=== PATIENT | male | born 1935 | race Caucasian/White ===

== ENCOUNTER 2018-10-14 06:51 | Outpatient (CLI) | payer MEDICARE, MEDICAID | END 2018-10-14 23:59 | disposition home or self-care (01) | LOC: CVU 06:51 | PROVIDERS: ATTEND Registered Nurse | DX: Z01.810 Encounter for preprocedural cardiovascular examination (principal); I08.0 Rheumatic disorders of both mitral and aortic valves; I65.21 Occlusion and stenosis of right carotid artery; I70.218 Atherosclerosis of native arteries of extremities with intermittent claudication, other extremity; I10 Essential (primary) hypertension | CPT/HCPCS: 93306 ==

== ENCOUNTER 2018-10-14 08:23 | Inpatient (IN) | payer MEDICARE, MEDICAID ==
[~2018-10-14] VITALS: Ht 160 cm; Wt 78.7 kg
[~2018-10-14 08:23] MED LIST: ANXIETY MEDICATION PO; CITA20TA6 PO
[2018-10-14 09:45] LABS: BASOPHILS # (AUTO) 0.06 x10^3/uL (0-0.1); BASOPHILS % (AUTO) 1 % (0-1); EOSINOPHILS # (AUTO) 0.55 x10^3/uL (0-0.4); EOSINOPHILS % (AUTO) 6 % (1-7); LYMPHOCYTES # (AUTO) 1.57 x10^3/uL (1-3.4); LYMPHOCYTES % (AUTO) 16 % (22-44); MD NO; MEAN CORPUSCULAR HEMOGLOBIN 28.2 pg (27.5-34.5); MEAN CORPUSCULAR HGB CONC 32.4 g/dL (33.2-36.2); MEAN CORPUSCULAR VOLUME 87.1 fL (81-97); MEAN PLATELET VOLUME 8.1 fL (7.4-10.4); MONOCYTES # (AUTO) 0.95 x10^3/uL (0.2-0.8); MONOCYTES % (AUTO) 10 % (2-9); NEUTROPHILS # (AUTO) 6.71 x10^3/uL (1.8-6.8); NEUTROPHILS % (AUTO) 68 % (42-75); PLATELET COUNT 271 x10^3/uL (130-400); RED BLOOD COUNT 4.94 x10^6/uL (4.38-5.82); RED CELL DISTRIBUTION WIDTH 17.9 % (9.4-14.8)
--- NOTE | 2018-10-14 09:50 | NUR ---
SPOKE WITH NATHALIA FROM [facility], PT IS SUPPOSED TO BE TAKING LISINOPRIL 5 MG, PER OFFICE THEY DID NOT TAKE HIM OFF THIS MEDICATION.
[2018-10-14] MEDS ORDERED: NAPROXEN 500 MG TABLET ONE (09:51)
[2018-10-14 09:52] LABS: INTERNATIONAL NORMALIZED RATIO 1.02 (0.93-1.1); PROTHROMBIN TIME 10.7 Seconds (9.6-11.5)
[2018-10-14 09:54] LABS: ALANINE AMINOTRANSFERASE 20 U/L (12-78); ALBUMIN 3.4 g/dL (3.4-5.0); ANION GAP 7 mmol/L (5-15); CALCIUM 8.5 mg/dL (8.5-10.1); CHLORIDE 108 mmol/L (98-107); CREATININE 0.77 mg/dL (0.7-1.3)
[2018-10-14 09:56] LABS: ALKALINE PHOSPHATASE 93 U/L (45-117); BILIRUBIN,TOTAL 0.5 mg/dL (0.2-1.0); TOTAL PROTEIN 7.7 g/dL (6.4-8.2)
[2018-10-14] MEDS ORDERED: NAPROXEN 500 MG TABLET PO ONE (10:00)
--- NOTE | 2018-10-14 10:54 | NUR ---
PT GIVEN FOOD AND BLANKETS, PT UP FOR RECHECK
[2018-10-14] MEDS ORDERED: ENALAPRIL 5MG TABLET PO ONE (11:30)
--- NOTE | 2018-10-14 12:05 | NUR ---
PER RECHECK BP 30 MIN POST VASOTEC, WILL RECHECK BP POST MED
[2018-10-14] MEDS ORDERED: ANXIETY MEDICATION PO PRN (13:00)
[2018-10-14] MEDS ORDERED: ACETAMINOPHEN 650 MG/20.3 ML UDC PO PRN (13:00)
[2018-10-14] MEDS ORDERED: HYDROcodone/APAP 5/325 TABLET PO PRN (13:00)
[2018-10-14] MEDS ORDERED: ONDANSETRON 2MG/ML, 2ML IVPush PRN (13:00)
[2018-10-14] MEDS ORDERED: LABETALOL 5 MG/ML SYR. (IV ONLY) IV PRN (13:00)
--- NOTE | 2018-10-14 13:30 | NUR ---
PT TO MRI, WILL GO FROM MRI TO CT, AND FROM CT TO 523. ED TP AWARE. ED PRIMARY RN, RADHA, AWARE. NOTIFIED EVELYN HERRING, TELEMETRY OF POC. DEPART FROM ED AT THIS TIME.
[2018-10-14 14:13] VITALS: BP 210/92
[2018-10-14 14:42] VITALS: BP 191/97
[2018-10-14 16:26] LABS: TROPONIN I < 0.015 ng/mL (0.000-0.045)
[2018-10-14 16:36] LABS: TROPONIN I < 0.015 ng/mL (0.000-0.045)
[2018-10-14 17:21] VITALS: BP 164/72
[2018-10-14 19:37] VITALS: BP_SYST 182; BP_SYST 196; BP_DIAS 103; BP_DIAS 89
[2018-10-14] MEDS ORDERED: TRAZODONE 50MG TABLET PO ONE (20:30)
[2018-10-14] MEDS ORDERED: LABETALOL 5 MG/ML SYR. (IV ONLY) IV ONE (21:00)
[2018-10-14] MEDS: ATORVASTATIN 40 MG TABLET PO SCH (21:11)
[2018-10-14 21:26] LABS: TROPONIN I < 0.015 ng/mL (0.000-0.045)
[2018-10-14 22:45] VITALS: BP 163/79
[2018-10-15] VITALS (7 sets, daily range): BP systolic 125–184; BP diastolic 58–102
[2018-10-15 05:59] LABS: CHOL/HDL RATIO 2.5; LDL/HDL RATIO 1.2 (0.5-3.0)
[2018-10-15 06:01] LABS: HEMOGLOBIN A1C 5.5 % (4.2-6.3)
[2018-10-15] MEDS: ASPIRIN 81 MG TABLET CHEW PO/NG SCH (08:21)
[2018-10-15] MEDS: CITALOPRAM 20 MG TABLET PO SCH (08:21)
[2018-10-15] MEDS ORDERED: LISINOPRIL 5 MG TABLET PO SCH (09:00)
[2018-10-15] MEDS ORDERED: LISINOPRIL 5 MG TABLET PO ONE (12:30)
[2018-10-15] MEDS ORDERED: ENOXAPARIN 40 MG/0.4 ML SQ SCH (14:30)
[2018-10-15] MEDS ORDERED: TRAZODONE 50MG TABLET PO PRN (18:00)
[2018-10-15] MEDS: ATORVASTATIN 40 MG TABLET PO SCH (19:57)
[2018-10-15] MEDS ORDERED: ACETAMINOPHEN 325 MG TABLET PO PRN (20:30)
[2018-10-16 03:55] VITALS: BP_SYST 167; BP_SYST 187; BP_SYST 199; BP_DIAS 81; BP_DIAS 84
[2018-10-16 07:02] VITALS: BP 163/76
[2018-10-16] MEDS: CITALOPRAM 20 MG TABLET PO SCH (07:59)
[2018-10-16] MEDS: ASPIRIN 81 MG TABLET CHEW PO/NG SCH (08:00)
[2018-10-16 08:04] VITALS: BP 175/81
[2018-10-16 08:05] VITALS: BP 176/79
[2018-10-16 08:06] VITALS: BP 149/89
[2018-10-16] MEDS ORDERED: LISINOPRIL 10 MG TABLET PO SCH (09:00)
[2018-10-16] MEDS ORDERED: ENALAPRILAT 1.25 MG/ML, 1ML IV PRN (10:30)
[2018-10-16] MEDS ORDERED: OMNIPAQUE 350 MG/ML, 75ML BOTTLE ONE (12:00)
[2018-10-16 12:33] VITALS: BP 191/79
[2018-10-16] MEDS ORDERED: ASPI-515 PO/NG (13:45)
[2018-10-16] MEDS ORDERED: TRAZ50TA66 PO (13:45)
[2018-10-16] MEDS ORDERED: LISI-167 PO (13:45)
[2018-10-16] MEDS ORDERED: ATOR40TA78 PO (13:45)
[2018-12-03] MEDS ORDERED: CHLO25TA PO (10:31)
[2018-12-03] MEDS ORDERED: TAMS-11 PO (10:31)
[2018-12-03] MEDS ORDERED: LISI5TAB7 PO (10:31)
[2018-12-03] MEDS ORDERED: TRAZ-137 PO (10:31)
[2018-12-03] MEDS ORDERED: FERR324T5 PO (10:31)
[2018-12-03] MEDS ORDERED: DULO30CA2 PO (10:31)
[2018-12-03] MEDS ORDERED: ASPI-496 PO (10:31)
== END 2018-10-16 18:07 | disposition home health service (06) | DRG 313 ==
LOC: ED 10:27 → EDIP 12:28 → 5SO 13:07
PROVIDERS: ADMIT Internal Medicine; ATTEND Internal Medicine
DX: R07.89 Other chest pain (principal); J98.11 Atelectasis; I10 Essential (primary) hypertension; E78.5 Hyperlipidemia, unspecified; M54.5 Low back pain; R27.0 Ataxia, unspecified; R91.1 Solitary pulmonary nodule; G89.29 Other chronic pain; I65.21 Occlusion and stenosis of right carotid artery; N40.0 Benign prostatic hyperplasia without lower urinary tract symptoms; Z87.891 Personal history of nicotine dependence
CPT/HCPCS: 36415; 70450; 70551; 71045; 71260; 80053; 80061; 82607; 82962; 83036; 84484; 85025; 85610; 85730; 87806; 93005; 93306; 93308; 93880; G0378; J1650; Q9967; G0475

== ENCOUNTER 2019-04-27 14:24 | Emergency (ER) | payer MEDICAID, MEDICARE ==
[~2019-04-27] VITALS: Ht 162.6 cm; Wt 81.6 kg
[~2019-04-27 14:24] MED LIST changes: +ASPI-496 PO; +ASPI-515 PO/NG; +ATOR40TA78 PO; +CHLO25TA PO; +DULO30CA2 PO; +FERR324T5 PO; +LISI-167 PO; +LISI5TAB7 PO; +TAMS-11 PO; +TRAZ-175 PO; +TRAZ50TA66 PO
--- NOTE | 2019-04-27 14:49 | NUR ---
PT PRESENTED TO ED D/T COMPLAINTS OF BEING "DEHYDRATED." PT ALSO STATES HAS BEEN HAVING MORE DIFFICULTY AMBULATING AT HOME. PT AMBULATED FROM TRIAGE ROOM TO ROOM 1 WITH A STEADY GAIT. PT ALSO HAS COMPLAINTS OF URGENCY AND FREQUENCY. PT DENIES ANY HX OF BPH. PT STATES UNDERWENT A CAROTID ENDARTERECTOMY 3 MONTHS AGO AND HAS BEEN MORE NERVOUS SINCE PROCEDURE. ERMD AT BEDSIDE EVALUATING PT.
[2019-04-27] MEDS ORDERED: SODIUM CHLORIDE FLUSH 10ML SYR IVF ONE (15:00)
[2019-04-27] MEDS ORDERED: SODIUM CHLORIDE 0.9% 1,000ML IVBOLUS ONE (15:00)
--- NOTE | 2019-04-27 15:17 | NUR ---
RN OBTAINED ORTHOSTATIC'S PER ERMD REQUEST. SEE VS MONITORING. PIV WAS STARTED 20 L AC. LABS COLLECTED. PT ABLE TO PROVIDE RN WITH A URINE SAMPLE. LABS AND URINE WALKED TO LAB. CALL LIGHT AND PERSONAL BELONGINGS WITHIN REACH. FLUID BOLUS BEING ADMINISTERED.
--- NOTE | 2019-04-27 15:24 | NUR ---
RN CALLED PHARMACY TO GET COMPLETED MED REC. STUNT PERFORMER GOING TO FAX RN MED LIST.
[2019-04-27 15:29] LABS: BASOPHILS # (AUTO) 0.03 x10^3/uL (0-0.1); BASOPHILS % (AUTO) 0 % (0-1); EOSINOPHILS % (AUTO) 7 % (1-7); LYMPHOCYTES # (AUTO) 1.96 x10^3/uL (1-3.4); LYMPHOCYTES % (AUTO) 24 % (22-44); MD NO; MEAN CORPUSCULAR HEMOGLOBIN 29.5 pg (27.5-34.5); MEAN CORPUSCULAR HGB CONC 33.4 g/dL (33.2-36.2); MEAN CORPUSCULAR VOLUME 88.3 fL (81-97); MONOCYTES # (AUTO) 0.98 x10^3/uL (0.2-0.8); MONOCYTES % (AUTO) 12 % (2-9); NEUTROPHILS # (AUTO) 4.61 x10^3/uL (1.8-6.8); NEUTROPHILS % (AUTO) 56 % (42-75); PLATELET COUNT 325 x10^3/uL (130-400); RED CELL DISTRIBUTION WIDTH 14.1 % (9.4-14.8)
[2019-04-27 15:32] LABS: MICROSCOPIC NOT IND
[2019-04-27 15:34] LABS: ALBUMIN 3.5 g/dL (3.4-5.0); ANION GAP 6 mmol/L (5-15); CALCIUM 8.9 mg/dL (8.5-10.1); CHLORIDE 106 mmol/L (98-107); CREATININE 0.87 mg/dL (0.7-1.3)
[2019-04-27 15:38] LABS: TROPONIN I < 0.015 ng/mL (0.000-0.045)
[2019-04-27 15:40] LABS: CULTURE INDICATED? NO
[2019-04-27] MEDS ORDERED: MIRT7.5T8 PO (15:47)
[2019-04-27] MEDS ORDERED: CLOP75TA PO (15:47)
[2019-04-27] MEDS ORDERED: TRAZ-175 PO (15:47)
[2019-04-27] MEDS ORDERED: HYDR200T72 PO (15:47)
[2019-04-27] MEDS ORDERED: HYDR-3241 PO (15:47)
[2019-04-27 16:28] VITALS: BP 197/76
--- NOTE | 2019-04-27 16:40 | NUR ---
PATIENT BEING DISCHARGED HOME IN A STABLE CONDITION. PIV WAS REMOVED WITH TIP INTACT. RN TO GO OVER DC INSTRUCTIONS ONCE PAPERWORK IS PRINTED. PT NEEDED TO VOID RN PROVIDED PT WITH URINAL. PT GOING TO GET SELF DRESSED.
--- NOTE | 2019-04-27 16:58 | NUR ---
PT VERBALIZED UNDERSTANDING OF DC INSTRUCTIONS. NO FURTHER QUESTIONS OR CONCERNS WERE EXPRESSED AT THAT TIME. PT AMBULATED TO DC DESK WITH A STEADY GAIT.
== END 2019-04-27 17:00 | disposition home or self-care (01) ==
LOC: ED 16:45
DX: R42 Dizziness and giddiness (principal); R53.1 Weakness; I10 Essential (primary) hypertension; E78.00 Pure hypercholesterolemia, unspecified; E78.5 Hyperlipidemia, unspecified; Z90.49 Acquired absence of other specified parts of digestive tract; Z87.891 Personal history of nicotine dependence
CPT/HCPCS: 36415; 71045; 80048; 81003; 82040; 83880; 84484; 85025; 93005; 99284; J7030

== ENCOUNTER 2019-07-28 10:57 | Inpatient (IN) | payer MEDICARE, MEDICAID ==
[~2019-07-28] VITALS: Ht 162.6 cm; Wt 68.7 kg
[~2019-07-28 10:57] MED LIST changes: +AMLO10TA8 PO; +ASPI-515 PO; +CLOP75TA PO; +CYCL-259 PO; +FURO40TA6 PO; +GUAI200T37 PO; +HYDR-3241 PO; +HYDR200T72 PO; +LIDO700A20 TD; +LISI-170 PO; +MIRT7.5T8 PO; +POTA20TA6 PO; +RIVA10TA2 PO; +TRAM50TA2 PO
--- NOTE | 2019-07-28 11:17 | NUR ---
Nelida RN: Pt BIB [facility] after having a near syncopal episode w/ nausea & disphoresis while at the [facility] for COVID testing. Pt was found to be bradycardic (rate 45). Pt states that he was at the [facility] "just to get checked out". Pt states that he had tested positive for COVID 19 6 weeks ago and that he has been doing well & symptom free & that he was "cleared" after his inital admission 6 weeks ago for COVID 19. Pt's primary concern is the pain in his LLE d/t a wound on his big toe & heel which pt says is 6 weeks old.
[2019-07-28] MEDS ORDERED: ONDANSETRON 2MG/ML, 2ML ONE (11:25)
[2019-07-28] MEDS ORDERED: MORPHINE SULFATE 4 MG/ML, 1ML ONE (11:25)
--- NOTE | 2019-07-28 11:27 | NUR ---
SPOKE WITH MEETA REGARDING PTS COVID TEST FROM [facility]. ATTEMPTED TO CONTACT HEALTH DEPT AND LEFT MESSAGE. MEETA WILL TRY TO CONTACT.
[2019-07-28] MEDS: MORPHINE SULFATE 4 MG/ML, 1ML IVPush PRN ×3 (11:29→21:56)
--- NOTE | 2019-07-28 11:29 | NUR ---
dr toth spoke with dr paris
[2019-07-28] MEDS ORDERED: SODIUM CHLORIDE FLUSH 10ML SYR IVF ONE (11:30)
[2019-07-28] MEDS ORDERED: ONDANSETRON 2MG/ML, 2ML IVPush ONE (11:30)
[2019-07-28 11:32] LABS: BASOPHILS # (AUTO) 0.06 x10^3/uL (0-0.1); BASOPHILS % (AUTO) 0 % (0-1); EOSINOPHILS % (AUTO) 0 % (1-7); LYMPHOCYTES # (AUTO) 1.65 x10^3/uL (1-3.4); LYMPHOCYTES % (AUTO) 11 % (22-44); MD NO; MEAN CORPUSCULAR HEMOGLOBIN 28.4 pg (27.5-34.5); MEAN CORPUSCULAR HGB CONC 33.3 g/dL (33.2-36.2); MEAN CORPUSCULAR VOLUME 85.2 fL (81-97); MONOCYTES # (AUTO) 1.35 x10^3/uL (0.2-0.8); MONOCYTES % (AUTO) 9 % (2-9); NEUTROPHILS # (AUTO) 12.55 x10^3/uL (1.8-6.8); NEUTROPHILS % (AUTO) 80 % (42-75); PLATELET COUNT 270 x10^3/uL (130-400); RED BLOOD COUNT 4.82 x10^6/uL (4.38-5.82)
--- NOTE | 2019-07-28 11:35 | NUR ---
RAD IN ROOM FOR XR.
--- NOTE | 2019-07-28 11:38 | NUR ---
CLEANER AND PRESSER IN ROOM W/ .
[2019-07-28 11:44] LABS: ALANINE AMINOTRANSFERASE 24 U/L (12-78); ALBUMIN 3.1 g/dL (3.4-5.0); ANION GAP 11 mmol/L (5-15); CALCIUM 9.2 mg/dL (8.5-10.1); CHLORIDE 104 mmol/L (98-107); CREATININE 5.25 mg/dL (0.7-1.3)
[2019-07-28 11:48] LABS: ALKALINE PHOSPHATASE 102 U/L (45-117); BILIRUBIN,TOTAL 0.6 mg/dL (0.2-1.0); TROPONIN I < 0.015 ng/mL (0.000-0.045)
--- NOTE | 2019-07-28 12:03 | NUR ---
SPOKE W/ [facility]. THEY REPORT HE HAS NOT FILLED MEDS AT THEIR FACILITY IN ABOUT 3 MONTHS, THEY ARE WAITING ON PRIMARY CARE TO SEND A MED LIST. THEY REPORTED ONLY FILLED AUGMENTIN AND NORCO 3 DAYS AGO. CALLED PTS PRIMARY CARE , THEY REPORTS HE IS ON NO BETA BLOCKERS AND WILL FAX OVER HIS MED LIST NOW. WILL UPDATE .
[2019-07-28] MEDS ORDERED: AMOX1TAB64 PO (12:15)
[2019-07-28] MEDS ORDERED: ASPI-496 PO (12:15)
[2019-07-28] MEDS ORDERED: TAMS-11 PO (12:15)
[2019-07-28] MEDS ORDERED: HYDR-3240 PO (12:16)
--- NOTE | 2019-07-28 12:16 | NUR ---
MED REC UPDATED BASED OFF OF MED LIST PRIMARY CARE DOC FAXED OVER.
[2019-07-28] MEDS ORDERED: SODIUM CHLORIDE 0.9% 1,000ML IVBOLUS ONE (12:30)
--- NOTE | 2019-07-28 12:47 | NUR ---
PT REPORTED FEELING DIZZY, TIRED AND NAUSEAS. PT FOUND TO BE HYPOTENSIVE AT 76/19. NOTIFIED, 1L NS BOLUS STARTED, PT NOW NORMOTENSIVE AND HR IMPROVED. WHILE IN THE ROOM PT HAS A 6 SECOND LONG PAUSE, RHYTHM PRINTED AND GIVEN TO , SHE REPROTS SHE WILL CALL CARDIOLOGY. PT CONNECTED TO MONITORING, WILL CONTINUE TO MONITOR.
[2019-07-28] MEDS ORDERED: DOPAMINE/D5W PMX 250 ML IV PRN ×2 (13:00→13:30)
--- NOTE | 2019-07-28 13:01 | NUR ---
dr toth spoke with dr paris
[2019-07-28] MEDS ORDERED: FENTANYL PF 100 MCG/2ML ONE ×2 (13:14→14:13)
[2019-07-28] MEDS ORDERED: MIDAZOLAM 1 MG/ML, 2ML ONE ×2 (13:14→14:13)
[2019-07-28] MEDS: DOPAMINE/D5W PMX 250 ML IV PRN ×2 (13:16→23:41)
--- NOTE | 2019-07-28 13:18 | NUR ---
MD Luo at bedside to discuss code status w/ pt, pt states he wants to be a DNR. Primary NIMA Landon & myself at bedside initiating Addendum: 07/28/19 at 1319 by EDGAR MD Luo at bedside to discuss code status w/ pt, pt states he wants to be a DNR. Primary NIMA Landon & myself at bedside initiating dopamine.
[2019-07-28] MEDS ORDERED: SODIUM CHLORIDE FLUSH 10ML SYR IVF PRN (13:30)
[2019-07-28] MEDS ORDERED: MIDAZOLAM HCL 50 MG in SODIUM CHLORIDE 0.9% 40 ML IV PRN (13:36)
--- NOTE | 2019-07-28 13:41 | NUR ---
TO TALK TO TO REEVALUATE PLAN FOR PACEMAKER.
--- NOTE | 2019-07-28 13:54 | NUR ---
AGREED TO TAKE PT TO GAS LOAD DISPATCHER FOR TEMPORARY PACEMAKER. PTS CLOTHING REMOVED AND PLACED IN BAG. PT UPDATED ON POC. SINUS PAUSES HAVE IMPROVED AFTER INITIAION OF DOPAMINE DRIP.
--- NOTE | 2019-07-28 13:58 | NUR ---
PT STILL C/O NAUSEA AND DIZZINESS.
[2019-07-28] MEDS: NICOTINE 14MG/24 HR PATCH.TD24 TD SCH (14:00)
[2019-07-28] MEDS ORDERED: FENTANYL PF 1,000 MCG in SODIUM CHLORIDE 0.9% 80 ML IV PRN (14:00)
[2019-07-28] MEDS: LACTATED RINGERS 1,000 ML IV SCH ×2 (14:12→22:20)
[2019-07-28] MEDS ORDERED: LIDOCAINE 2%, 20ML ONE (14:13)
--- NOTE | 2019-07-28 14:40 | NUR ---
PT TRANSFERED TO THE LOG WASHER.
--- NOTE | 2019-07-28 14:41 | NUR ---
ATTEMPT TO CALL REPORT TO ICU. UNAVAILABLE AT THIS TIME.
[2019-07-28 14:55] LABS: FREE T4 (FREE THYROXINE) 1.25 ng/dL (0.76-1.46); TROPONIN I 0.019 ng/mL (0.000-0.045)
[2019-07-28 14:57] LABS: INTERNATIONAL NORMALIZED RATIO 0.97 (0.93-1.1); PROTHROMBIN TIME 10.3 Seconds (9.6-11.5)
--- NOTE | 2019-07-28 15:09 | NUR ---
REPORT TO NIMA CARMICHAEL
--- NOTE | 2019-07-28 15:15 | NUR ---
MARY ANNE [phone] . ALY FORREST [phone]. PTS CLOSE FRIENDS WOULD LIKE TO BE UPDATED W/ PTS PERMISSION.
[2019-07-28] MEDS: AMPICILLIN/SULBACTAM 1,500 MG in SODIUM CHLORIDE 0.9% 50 ML IV SCH ×2 (15:59→23:39)
[2019-07-28 16:00] VITALS: BP 153/78
[2019-07-28] MEDS ORDERED: ONDANSETRON 2MG/ML, 2ML IVPush PRN (16:00)
[2019-07-28] MEDS ORDERED: LORazepam 2 MG/ML, 1ML IV PRN ×2 (16:00)
[2019-07-28] MEDS ORDERED: LORazepam 1MG TABLET PO PRN (16:00)
[2019-07-28] MEDS ORDERED: hydrALAzine 20 MG/ML, 1ML IV PRN (17:00)
[2019-07-28] MEDS: HEPARIN 5,000 UNITS/ML, 1ML SQ SCH (17:34)
[2019-07-28] MEDS: LORazepam 0.5MG TABLET PO PRN (20:44)
[2019-07-28 21:03] LABS: TROPONIN I 0.081 ng/mL (0.000-0.045)
[2019-07-29] MEDS: LORazepam 2 MG/ML, 1ML IV PRN ×2 (01:14→17:22)
[2019-07-29] MEDS: HEPARIN 5,000 UNITS/ML, 1ML SQ SCH (01:55)
[2019-07-29 04:00] VITALS: BP 107/43
[2019-07-29 04:58] LABS: ALANINE AMINOTRANSFERASE 15 U/L (12-78); ALBUMIN 2.3 g/dL (3.4-5.0); ANION GAP 9 mmol/L (5-15); CALCIUM 7.9 mg/dL (8.5-10.1); CHLORIDE 107 mmol/L (98-107); CREATININE 3.67 mg/dL (0.7-1.3)
[2019-07-29 05:03] LABS: BASOPHILS # (AUTO) 0.02 x10^3/uL (0-0.1); BASOPHILS % (AUTO) 0 % (0-1); EOSINOPHILS % (AUTO) 0 % (1-7); LYMPHOCYTES # (AUTO) 2.34 x10^3/uL (1-3.4); LYMPHOCYTES % (AUTO) 20 % (22-44); MD NO; MEAN CORPUSCULAR HEMOGLOBIN 27.9 pg (27.5-34.5); MEAN CORPUSCULAR HGB CONC 32.6 g/dL (33.2-36.2); MEAN CORPUSCULAR VOLUME 85.7 fL (81-97); MEAN PLATELET VOLUME 10.3 fL (7.4-10.4); MONOCYTES # (AUTO) 1.26 x10^3/uL (0.2-0.8); MONOCYTES % (AUTO) 11 % (2-9); NEUTROPHILS # (AUTO) 8.39 x10^3/uL (1.8-6.8); NEUTROPHILS % (AUTO) 70 % (42-75); PLATELET COUNT 219 x10^3/uL (130-400); RED BLOOD COUNT 3.75 x10^6/uL (4.38-5.82); RED CELL DISTRIBUTION WIDTH 16.4 % (9.4-14.8)
[2019-07-29 05:05] LABS: ALKALINE PHOSPHATASE 81 U/L (45-117); BILIRUBIN,TOTAL 0.6 mg/dL (0.2-1.0); TOTAL PROTEIN 6.2 g/dL (6.4-8.2)
[2019-07-29 05:13] LABS: CHOL/HDL RATIO 4.1; LDL/HDL RATIO 2.6 (0.5-3.0)
[2019-07-29] MEDS: LACTATED RINGERS 1,000 ML IV SCH ×2 (06:00→17:32)
[2019-07-29 06:07] LABS: MICROSCOPIC NOT IND
[2019-07-29 06:13] LABS: CHLORIDE,URINE RANDOM 18 mmol/L; POTASSIUM,URINE RANDOM 59 mmol/L; SODIUM,URINE RANDOM 25 mmol/L
[2019-07-29] MEDS ORDERED: HEPARIN 5,000 UNITS/ML, 1ML IV ONE (10:30)
[2019-07-29] MEDS: THIAMINE 200 MG in SODIUM CHLORIDE 0.9% 50 ML IV SCH (10:54)
[2019-07-29] MEDS: AMPICILLIN/SULBACTAM 1,500 MG in SODIUM CHLORIDE 0.9% 50 ML IV SCH ×2 (10:55→18:41)
[2019-07-29] MEDS: DIAZEPAM 5 MG TABLET PO SCH ×3 (11:03→19:59)
[2019-07-29] MEDS: HEPARIN 25,000 UNITS/250ML PMX 250 ML IV PRN (11:50)
[2019-07-29] MEDS ORDERED: ZIPRASIDONE 20MG CAPSULE ONE (12:09)
[2019-07-29] MEDS ORDERED: ZIPRASIDONE 20 MG INJ IM ONE ×2 (12:30→19:00)
[2019-07-29] MEDS: NICOTINE 14MG/24 HR PATCH.TD24 TD SCH (15:24)
[2019-07-29] MEDS: DOPAMINE/D5W PMX 250 ML IV PRN (15:25)
[2019-07-29] MEDS: MORPHINE SULFATE 4 MG/ML, 1ML IVPush PRN ×2 (15:25→22:05)
[2019-07-29] MEDS ORDERED: ZIPRASIDONE 20MG CAPSULE PO SCH (21:00)
[2019-07-30 01:04] LABS: ALANINE AMINOTRANSFERASE 15 U/L (12-78); ALBUMIN 2.3 g/dL (3.4-5.0); ANION GAP 7 mmol/L (5-15); CALCIUM 8.3 mg/dL (8.5-10.1); CHLORIDE 112 mmol/L (98-107)
[2019-07-30 01:11] LABS: ALKALINE PHOSPHATASE 76 U/L (45-117); BILIRUBIN,TOTAL 0.3 mg/dL (0.2-1.0); CREATININE 1.58 mg/dL (0.7-1.3); TOTAL PROTEIN 6.4 g/dL (6.4-8.2)
[2019-07-30 01:22] LABS: MEAN CORPUSCULAR HEMOGLOBIN 28.3 pg (27.5-34.5); MEAN CORPUSCULAR VOLUME 85.6 fL (81-97); MEAN PLATELET VOLUME 10.1 fL (7.4-10.4); PLATELET COUNT 222 x10^3/uL (130-400); RED BLOOD COUNT 3.92 x10^6/uL (4.38-5.82); RED CELL DISTRIBUTION WIDTH 16.6 % (9.4-14.8)
[2019-07-30] MEDS: MORPHINE SULFATE 4 MG/ML, 1ML IVPush PRN ×2 (01:30→20:42)
[2019-07-30 01:31] LABS: BASOPHILS # (AUTO) 0.03 x10^3/uL (0-0.1); BASOPHILS % (AUTO) 0 % (0-1); EOSINOPHILS % (AUTO) 0 % (1-7); LYMPHOCYTES # (AUTO) 1.95 x10^3/uL (1-3.4); LYMPHOCYTES % (AUTO) 24 % (22-44); MD SCAN; MONOCYTES % (AUTO) 12 % (2-9); NEUTROPHILS # (AUTO) 5.14 x10^3/uL (1.8-6.8); NEUTROPHILS % (AUTO) 63 % (42-75)
[2019-07-30] MEDS: AMPICILLIN/SULBACTAM 1,500 MG in SODIUM CHLORIDE 0.9% 50 ML IV SCH (02:28)
[2019-07-30] MEDS: LACTATED RINGERS 1,000 ML IV SCH ×2 (02:28→16:40)
[2019-07-30] MEDS: LORazepam 2 MG/ML, 1ML IV PRN (05:47)
[2019-07-30] MEDS: DIAZEPAM 5 MG TABLET PO SCH ×4 (05:47→20:42)
[2019-07-30] MEDS ORDERED: ZIPRASIDONE 20 MG INJ IM PRN (08:00)
[2019-07-30] MEDS: THIAMINE 200 MG in SODIUM CHLORIDE 0.9% 50 ML IV SCH (10:17)
[2019-07-30] MEDS: AMLODIPINE 5 MG TABLET PO SCH (10:17)
[2019-07-30] MEDS: NICOTINE 14MG/24 HR PATCH.TD24 TD SCH (14:47)
[2019-07-30] MEDS ORDERED: AMPICILLIN/SULBACTAM 3,000 MG in SODIUM CHLORIDE 0.9% 50 ML IV SCH (16:00)
[2019-07-30] MEDS: AMPICILLIN/SULBACTAM 3,000 MG in SODIUM CHLORIDE 0.9% 100 ML IV SCH (16:35)
[2019-07-30] MEDS: HEPARIN 25,000 UNITS/250ML PMX 250 ML IV PRN (20:30)
[2019-07-30] MEDS: ATORVASTATIN 80 MG TABLET PO SCH (20:41)
[2019-07-31] MEDS: LORazepam 2 MG/ML, 1ML IV PRN ×2 (00:11→05:24)
[2019-07-31] MEDS: AMPICILLIN/SULBACTAM 3,000 MG in SODIUM CHLORIDE 0.9% 100 ML IV SCH ×3 (00:12→16:02)
[2019-07-31] MEDS: MORPHINE SULFATE 4 MG/ML, 1ML IVPush PRN ×2 (00:12→05:23)
[2019-07-31] MEDS: DIAZEPAM 5 MG TABLET PO SCH (05:28)
[2019-07-31 06:30] LABS: ALANINE AMINOTRANSFERASE 18 U/L (12-78); ALBUMIN 2.6 g/dL (3.4-5.0); ANION GAP 4 mmol/L (5-15); CHLORIDE 111 mmol/L (98-107); CREATININE 0.85 mg/dL (0.7-1.3)
[2019-07-31 06:32] LABS: ALKALINE PHOSPHATASE 83 U/L (45-117); BILIRUBIN,TOTAL 0.5 mg/dL (0.2-1.0); TOTAL PROTEIN 6.9 g/dL (6.4-8.2)
[2019-07-31] MEDS: AMLODIPINE 5 MG TABLET PO SCH (08:32)
[2019-07-31] MEDS: HEPARIN 5,000 UNITS/ML, 1ML IV PRN (08:32)
[2019-07-31] MEDS: THIAMINE 200 MG in SODIUM CHLORIDE 0.9% 50 ML IV SCH (09:14)
[2019-07-31] MEDS: LACTATED RINGERS 1,000 ML IV SCH (11:26)
[2019-07-31] MEDS: NICOTINE 14MG/24 HR PATCH.TD24 TD SCH (16:02)
[2019-07-31] MEDS: ATORVASTATIN 80 MG TABLET PO SCH (20:47)
[2019-07-31] MEDS: LORazepam 1MG TABLET PO PRN (20:48)
[2019-07-31] MEDS: HEPARIN 25,000 UNITS/250ML PMX 250 ML IV PRN (22:15)
[2019-08-01] MEDS: AMPICILLIN/SULBACTAM 3,000 MG in SODIUM CHLORIDE 0.9% 100 ML IV SCH ×4 (00:28→23:35)
[2019-08-01 07:36] LABS: ALANINE AMINOTRANSFERASE 14 U/L (12-78); ALBUMIN 2.2 g/dL (3.4-5.0); ANION GAP 7 mmol/L (5-15); CALCIUM 8.3 mg/dL (8.5-10.1); CHLORIDE 109 mmol/L (98-107); CREATININE 0.71 mg/dL (0.7-1.3)
[2019-08-01 07:38] LABS: ALKALINE PHOSPHATASE 73 U/L (45-117); BILIRUBIN,TOTAL 0.4 mg/dL (0.2-1.0)
[2019-08-01] MEDS: THIAMINE 200 MG in SODIUM CHLORIDE 0.9% 50 ML IV SCH (09:21)
[2019-08-01] MEDS ORDERED: LISINOPRIL 10 MG TABLET ONE (09:21)
[2019-08-01] MEDS: LACTATED RINGERS 1,000 ML IV SCH (09:22)
[2019-08-01] MEDS: AMLODIPINE 5 MG TABLET PO SCH (09:22)
[2019-08-01] MEDS: LISINOPRIL 10 MG TABLET PO SCH ×2 (09:22→20:29)
[2019-08-01] MEDS: ACETAMINOPHEN 325 MG TABLET PO PRN (14:38)
[2019-08-01] MEDS: NICOTINE 14MG/24 HR PATCH.TD24 TD SCH (16:30)
[2019-08-01] MEDS: MORPHINE SULFATE 4 MG/ML, 1ML IVPush PRN (18:53)
[2019-08-01] MEDS: ATORVASTATIN 80 MG TABLET PO SCH (20:29)
[2019-08-01] MEDS: LORazepam 1MG TABLET PO PRN (23:36)
[2019-08-02] MEDS: HEPARIN 25,000 UNITS/250ML PMX 250 ML IV PRN (02:44)
[2019-08-02] MEDS: MORPHINE SULFATE 4 MG/ML, 1ML IVPush PRN ×3 (02:51→10:56)
[2019-08-02] MEDS: LACTATED RINGERS 1,000 ML IV SCH (05:26)
[2019-08-02 05:28] LABS: ALANINE AMINOTRANSFERASE 16 U/L (12-78); ALBUMIN 2.1 g/dL (3.4-5.0); ANION GAP 8 mmol/L (5-15); CALCIUM 8.2 mg/dL (8.5-10.1); CHLORIDE 112 mmol/L (98-107); CREATININE 0.64 mg/dL (0.7-1.3)
[2019-08-02 05:29] LABS: ALKALINE PHOSPHATASE 67 U/L (45-117); BILIRUBIN,TOTAL 0.4 mg/dL (0.2-1.0); TOTAL PROTEIN 6.2 g/dL (6.4-8.2)
[2019-08-02] MEDS: HEPARIN 5,000 UNITS/ML, 1ML IV PRN (06:26)
[2019-08-02] MEDS: LISINOPRIL 10 MG TABLET PO SCH ×2 (08:59→20:13)
[2019-08-02] MEDS: AMLODIPINE 5 MG TABLET PO SCH (08:59)
[2019-08-02] MEDS: THIAMINE 200 MG in SODIUM CHLORIDE 0.9% 50 ML IV SCH (09:00)
[2019-08-02] MEDS: AMPICILLIN/SULBACTAM 3,000 MG in SODIUM CHLORIDE 0.9% 100 ML IV SCH ×2 (09:00→15:42)
[2019-08-02] MEDS: OXYcodone IR 5MG TABLET PO PRN ×3 (12:10→20:14)
[2019-08-02] MEDS: NICOTINE 14MG/24 HR PATCH.TD24 TD SCH (15:42)
[2019-08-02] MEDS: ATORVASTATIN 80 MG TABLET PO SCH (20:11)
[2019-08-02] MEDS: ACETAMINOPHEN 325 MG TABLET PO PRN (20:14)
[2019-08-02 20:19] VITALS: BP 148/67
[2019-08-02] MEDS ORDERED: TEMAZEPAM 15 MG CAPSULE PO ONE (21:00)
[2019-08-02] MEDS: morphine SULFATE 10 MG/ML, 1ML IVPush PRN (21:39)
[2019-08-03] MEDS: HEPARIN 25,000 UNITS/250ML PMX 250 ML IV PRN (01:51)
[2019-08-03] MEDS: AMPICILLIN/SULBACTAM 3,000 MG in SODIUM CHLORIDE 0.9% 100 ML IV SCH ×3 (02:00→16:52)
[2019-08-03 03:05] VITALS: BP 140/65
[2019-08-03] MEDS: HEPARIN 5,000 UNITS/ML, 1ML IV PRN (05:32)
[2019-08-03 08:39] VITALS: BP 120/63
[2019-08-03] MEDS: OXYcodone IR 5MG TABLET PO PRN ×4 (08:42→22:47)
[2019-08-03] MEDS: AMLODIPINE 5 MG TABLET PO SCH (08:42)
[2019-08-03] MEDS: LISINOPRIL 10 MG TABLET PO SCH ×2 (08:42→19:45)
[2019-08-03] MEDS: NICOTINE 14MG/24 HR PATCH.TD24 TD SCH (11:30)
[2019-08-03] MEDS: THIAMINE 200 MG in SODIUM CHLORIDE 0.9% 50 ML IV SCH (11:56)
[2019-08-03] MEDS: POLYETHYLENE GLYCOL 17 GM PACKET PO PRN (11:59)
[2019-08-03] MEDS: DOCUSATE 100 MG CAPSULE PO SCH ×2 (11:59→19:45)
[2019-08-03 12:09] VITALS: BP 108/58
[2019-08-03 14:41] VITALS: BP 114/31
[2019-08-03 18:16] VITALS: BP 103/50
[2019-08-03] MEDS: ATORVASTATIN 80 MG TABLET PO SCH (19:45)
[2019-08-04 00:39] VITALS: BP 149/73
[2019-08-04] MEDS: AMPICILLIN/SULBACTAM 3,000 MG in SODIUM CHLORIDE 0.9% 100 ML IV SCH ×3 (01:16→16:46)
[2019-08-04] MEDS: HEPARIN 25,000 UNITS/250ML PMX 250 ML IV PRN (01:19)
[2019-08-04] MEDS: morphine SULFATE 10 MG/ML, 1ML IVPush PRN (03:17)
[2019-08-04 04:37] LABS: ANION GAP 6 mmol/L (5-15); CALCIUM 8.3 mg/dL (8.5-10.1); CHLORIDE 110 mmol/L (98-107); CREATININE 0.82 mg/dL (0.7-1.3)
[2019-08-04 04:41] LABS: BASOPHILS % (AUTO) 0 % (0-1); EOSINOPHILS % (AUTO) 0 % (1-7); LYMPHOCYTES # (AUTO) 2.71 x10^3/uL (1-3.4); LYMPHOCYTES % (AUTO) 24 % (22-44); MD NO; MEAN CORPUSCULAR HEMOGLOBIN 28.3 pg (27.5-34.5); MEAN CORPUSCULAR HGB CONC 32.9 g/dL (33.2-36.2); MEAN CORPUSCULAR VOLUME 85.8 fL (81-97); MEAN PLATELET VOLUME 9.4 fL (7.4-10.4); MONOCYTES # (AUTO) 1.19 x10^3/uL (0.2-0.8); MONOCYTES % (AUTO) 11 % (2-9); NEUTROPHILS # (AUTO) 7.29 x10^3/uL (1.8-6.8); NEUTROPHILS % (AUTO) 65 % (42-75); PLATELET COUNT 215 x10^3/uL (130-400); RED BLOOD COUNT 3.68 x10^6/uL (4.38-5.82); RED CELL DISTRIBUTION WIDTH 18.6 % (9.4-14.8)
[2019-08-04 07:24] VITALS: BP 129/68
[2019-08-04] MEDS: DOCUSATE 100 MG CAPSULE PO SCH ×2 (08:44→21:16)
[2019-08-04] MEDS: AMLODIPINE 5 MG TABLET PO SCH (08:44)
[2019-08-04] MEDS: LISINOPRIL 10 MG TABLET PO SCH ×2 (08:44→21:16)
[2019-08-04] MEDS: THIAMINE 200 MG in SODIUM CHLORIDE 0.9% 50 ML IV SCH (08:45)
[2019-08-04] MEDS: OXYcodone IR 5MG TABLET PO PRN (09:37)
[2019-08-04] MEDS ORDERED: FENTANYL PF 100 MCG/2ML ONE ×2 (13:25)
[2019-08-04] MEDS ORDERED: MIDAZOLAM 1 MG/ML, 5ML ONE (13:25)
[2019-08-04] MEDS ORDERED: HEPARIN 1,000 UNITS/ML, 10ML ONE (13:26)
[2019-08-04] MEDS ORDERED: PROTAMINE SULFATE 10 MG/ML, 25ML ONE (13:26)
[2019-08-04] MEDS ORDERED: NALOXONE 1 MG/ML, 2ML ONE (13:26)
[2019-08-04] MEDS ORDERED: FLUMAZENIL 0.1 MG/1 ML, 5ML ONE (13:26)
[2019-08-04 13:48] VITALS: BP 165/79
[2019-08-04] MEDS ORDERED: LIDOCAINE 1%, 10ML ONE (13:52)
[2019-08-04] MEDS ORDERED: DIPHENHYDRAMINE 50 MG/ML, 1ML ONE (14:32)
[2019-08-04 16:43] VITALS: BP 136/82
[2019-08-04] MEDS: NICOTINE 14MG/24 HR PATCH.TD24 TD SCH (16:45)
[2019-08-04] MEDS ORDERED: HEPARIN 5,000 UNITS/ML, 1ML IV ONE (18:30)
[2019-08-04 19:02] VITALS: BP 129/56
[2019-08-04] MEDS: ATORVASTATIN 80 MG TABLET PO SCH (21:17)
[2019-08-05 00:35] VITALS: BP 144/73
[2019-08-05] MEDS: AMPICILLIN/SULBACTAM 3,000 MG in SODIUM CHLORIDE 0.9% 100 ML IV SCH ×3 (01:21→18:13)
[2019-08-05] MEDS: morphine SULFATE 10 MG/ML, 1ML IVPush PRN ×3 (01:30→14:16)
[2019-08-05] MEDS: HEPARIN 5,000 UNITS/ML, 1ML IV PRN ×2 (02:01→17:55)
[2019-08-05] MEDS: HEPARIN 25,000 UNITS/250ML PMX 250 ML IV PRN (06:00)
[2019-08-05 07:32] VITALS: BP 144/65
[2019-08-05] MEDS: THIAMINE 200 MG in SODIUM CHLORIDE 0.9% 50 ML IV SCH (08:21)
[2019-08-05] MEDS: AMLODIPINE 5 MG TABLET PO SCH (08:23)
[2019-08-05] MEDS: BISACODYL 10 MG SUPP PR PRN (08:23)
[2019-08-05] MEDS: LISINOPRIL 10 MG TABLET PO SCH ×2 (08:23→20:30)
[2019-08-05] MEDS: POLYETHYLENE GLYCOL 17 GM PACKET PO PRN (08:23)
[2019-08-05] MEDS: DOCUSATE 100 MG CAPSULE PO SCH ×2 (08:23→20:30)
[2019-08-05 09:39] LABS: BASOPHILS # (AUTO) 0.03 x10^3/uL (0-0.1); BASOPHILS % (AUTO) 0 % (0-1); EOSINOPHILS % (AUTO) 0 % (1-7); LYMPHOCYTES # (AUTO) 1.75 x10^3/uL (1-3.4); LYMPHOCYTES % (AUTO) 15 % (22-44); MD NO; MEAN CORPUSCULAR HEMOGLOBIN 28.1 pg (27.5-34.5); MEAN CORPUSCULAR HGB CONC 32.3 g/dL (33.2-36.2); MEAN PLATELET VOLUME 9.3 fL (7.4-10.4); MONOCYTES # (AUTO) 1.02 x10^3/uL (0.2-0.8); MONOCYTES % (AUTO) 8 % (2-9); NEUTROPHILS # (AUTO) 9.31 x10^3/uL (1.8-6.8); NEUTROPHILS % (AUTO) 77 % (42-75); PLATELET COUNT 245 x10^3/uL (130-400); RED BLOOD COUNT 3.81 x10^6/uL (4.38-5.82); RED CELL DISTRIBUTION WIDTH 18.5 % (9.4-14.8)
[2019-08-05 09:51] LABS: ANION GAP 8 mmol/L (5-15); CALCIUM 8.8 mg/dL (8.5-10.1); CHLORIDE 110 mmol/L (98-107); CREATININE 0.73 mg/dL (0.7-1.3)
[2019-08-05 12:37] VITALS: BP 132/42
[2019-08-05] MEDS: NICOTINE 14MG/24 HR PATCH.TD24 TD SCH (18:17)
[2019-08-05 20:27] VITALS: BP 118/51
[2019-08-05] MEDS: ATORVASTATIN 80 MG TABLET PO SCH (20:30)
[2019-08-05] MEDS: OXYcodone IR 5MG TABLET PO PRN (20:30)
[2019-08-06] MEDS: OXYcodone IR 5MG TABLET PO PRN ×4 (00:39→21:25)
[2019-08-06 01:05] LABS: BASOPHILS # (AUTO) 0.01 x10^3/uL (0-0.1); BASOPHILS % (AUTO) 0 % (0-1); EOSINOPHILS % (AUTO) 0 % (1-7); LYMPHOCYTES # (AUTO) 1.33 x10^3/uL (1-3.4); LYMPHOCYTES % (AUTO) 10 % (22-44); MD NO; MEAN CORPUSCULAR HEMOGLOBIN 28.2 pg (27.5-34.5); MEAN CORPUSCULAR HGB CONC 32.7 g/dL (33.2-36.2); MEAN CORPUSCULAR VOLUME 86.3 fL (81-97); MEAN PLATELET VOLUME 9.5 fL (7.4-10.4); MONOCYTES # (AUTO) 1.31 x10^3/uL (0.2-0.8); MONOCYTES % (AUTO) 10 % (2-9); NEUTROPHILS # (AUTO) 11.06 x10^3/uL (1.8-6.8); NEUTROPHILS % (AUTO) 81 % (42-75); PLATELET COUNT 234 x10^3/uL (130-400); RED BLOOD COUNT 3.41 x10^6/uL (4.38-5.82); RED CELL DISTRIBUTION WIDTH 18.5 % (9.4-14.8)
[2019-08-06] MEDS: AMPICILLIN/SULBACTAM 3,000 MG in SODIUM CHLORIDE 0.9% 100 ML IV SCH ×3 (01:05→17:02)
[2019-08-06 01:14] LABS: ALBUMIN 2.3 g/dL (3.4-5.0); ANION GAP 6 mmol/L (5-15); CALCIUM 8.7 mg/dL (8.5-10.1); CHLORIDE 110 mmol/L (98-107); CREATININE 0.67 mg/dL (0.7-1.3)
[2019-08-06 01:58] VITALS: BP 145/56
[2019-08-06] MEDS: morphine SULFATE 10 MG/ML, 1ML IVPush PRN ×3 (03:49→17:56)
[2019-08-06] MEDS: HEPARIN 25,000 UNITS/250ML PMX 250 ML IV PRN (06:14)
[2019-08-06] MEDS ORDERED: POTASSIUM CHLORIDE 20 MEQ in SODIUM CHLORIDE 0.9% 250 ML IV ONE (07:00)
[2019-08-06 08:20] VITALS: BP 150/75
[2019-08-06] MEDS: AMLODIPINE 5 MG TABLET PO SCH (08:24)
[2019-08-06] MEDS: DOCUSATE 100 MG CAPSULE PO SCH ×2 (08:24→21:18)
[2019-08-06] MEDS: LISINOPRIL 10 MG TABLET PO SCH ×2 (08:24→21:18)
[2019-08-06] MEDS: THIAMINE 200 MG in SODIUM CHLORIDE 0.9% 50 ML IV SCH (09:36)
[2019-08-06 12:11] VITALS: BP 129/72
[2019-08-06] MEDS ORDERED: ENOXAPARIN 40 MG/0.4 ML ONE (13:12)
[2019-08-06] MEDS: ENOXAPARIN 40 MG/0.4 ML SQ SCH (13:18)
[2019-08-06] MEDS: NICOTINE 14MG/24 HR PATCH.TD24 TD SCH (17:03)
[2019-08-06 20:04] VITALS: BP 134/60
[2019-08-06] MEDS: ATORVASTATIN 80 MG TABLET PO SCH (21:18)
[2019-08-07] MEDS: AMPICILLIN/SULBACTAM 3,000 MG in SODIUM CHLORIDE 0.9% 100 ML IV SCH ×3 (00:47→15:35)
[2019-08-07 00:49] VITALS: BP 134/69
[2019-08-07] MEDS: OXYcodone IR 5MG TABLET PO PRN ×3 (02:02→18:06)
[2019-08-07 05:45] LABS: MEAN CORPUSCULAR HEMOGLOBIN 28.8 pg (27.5-34.5); MEAN CORPUSCULAR HGB CONC 33.6 g/dL (33.2-36.2); MEAN CORPUSCULAR VOLUME 85.7 fL (81-97); MEAN PLATELET VOLUME 9.7 fL (7.4-10.4); PLATELET COUNT 261 x10^3/uL (130-400); RED CELL DISTRIBUTION WIDTH 18.3 % (9.4-14.8)
[2019-08-07 05:55] LABS: CALCIUM 8.5 mg/dL (8.5-10.1); CHLORIDE 109 mmol/L (98-107)
[2019-08-07 05:59] LABS: ALBUMIN 2.2 g/dL (3.4-5.0); ANION GAP 9 mmol/L (5-15); CREATININE 0.73 mg/dL (0.7-1.3)
[2019-08-07 06:19] LABS: MD YES
[2019-08-07 06:20] LABS: LYMPH#(MANUAL) 1.58 x10^3/uL (1-3.4); LYMPHS% (MANUAL) 8 % (22-44); MONOS#(MANUAL) 1.19 x10^3/uL (0.3-2.7); MONOS% (MANUAL) 6 % (2-9); SEG#(MANUAL) 17.03 x10^3/uL (1.8-6.8); SEGS% (MANUAL) 86 % (42-75)
[2019-08-07 06:21] LABS: <PLATELET ESTIMATE> ADEQUATE; <PLT MORPHOLOGY> NORMAL PLT MORPH; ANISOCYTOSIS 1+
[2019-08-07] MEDS: CLOPIDOGREL 75 MG TABLET PO SCH (08:56)
[2019-08-07] MEDS: DOCUSATE 100 MG CAPSULE PO SCH ×2 (08:56→20:59)
[2019-08-07] MEDS: AMLODIPINE 5 MG TABLET PO SCH (08:56)
[2019-08-07] MEDS: LISINOPRIL 10 MG TABLET PO SCH ×2 (08:57→21:00)
[2019-08-07] MEDS: THIAMINE 200 MG in SODIUM CHLORIDE 0.9% 50 ML IV SCH (10:04)
[2019-08-07 10:26] VITALS: BP 114/72
[2019-08-07 12:58] VITALS: BP 100/66
[2019-08-07] MEDS: POLYETHYLENE GLYCOL 17 GM PACKET PO PRN (13:17)
[2019-08-07] MEDS: ENOXAPARIN 40 MG/0.4 ML SQ SCH (13:17)
[2019-08-07] MEDS: NICOTINE 14MG/24 HR PATCH.TD24 TD SCH (15:35)
[2019-08-07 19:29] VITALS: BP 110/71
[2019-08-07] MEDS: ATORVASTATIN 80 MG TABLET PO SCH (20:59)
[2019-08-07] MEDS: ACETAMINOPHEN 325 MG TABLET PO PRN (21:01)
[2019-08-07] MEDS: LORazepam 0.5MG TABLET PO PRN (21:02)
[2019-08-07] MEDS: ASCORBATE SODIUM 3,000 MG in SODIUM CHLORIDE 0.9% 250 ML IVPB SCH (21:03)
[2019-08-08] VITALS (8 sets, daily range): BP systolic 89–124; BP diastolic 37–72
[2019-08-08] MEDS: AMPICILLIN/SULBACTAM 3,000 MG in SODIUM CHLORIDE 0.9% 100 ML IV SCH ×3 (00:37→16:31)
[2019-08-08] MEDS: OXYcodone IR 5MG TABLET PO PRN ×2 (00:47→20:27)
[2019-08-08] MEDS: ASCORBATE SODIUM 3,000 MG in SODIUM CHLORIDE 0.9% 250 ML IVPB SCH ×4 (02:17→22:49)
[2019-08-08 05:59] LABS: CHLORIDE 108 mmol/L (98-107)
[2019-08-08 06:04] LABS: ALBUMIN 1.9 g/dL (3.4-5.0); ANION GAP 8 mmol/L (5-15); CALCIUM 8.2 mg/dL (8.5-10.1); CREATININE 1.35 mg/dL (0.7-1.3)
[2019-08-08 06:13] LABS: MEAN CORPUSCULAR HEMOGLOBIN 28.1 pg (27.5-34.5); MEAN CORPUSCULAR HGB CONC 32.6 g/dL (33.2-36.2); MEAN CORPUSCULAR VOLUME 86.4 fL (81-97); MEAN PLATELET VOLUME 9.8 fL (7.4-10.4); PLATELET COUNT 279 x10^3/uL (130-400); RED BLOOD COUNT 2.24 x10^6/uL (4.38-5.82); RED CELL DISTRIBUTION WIDTH 19.2 % (9.4-14.8)
[2019-08-08 06:39] LABS: BASOPHILS # (AUTO) 0.01 x10^3/uL (0-0.1); BASOPHILS % (AUTO) 0 % (0-1); EOSINOPHILS # (AUTO) 0.12 x10^3/uL (0-0.4); EOSINOPHILS % (AUTO) 1 % (1-7); LYMPHOCYTES # (AUTO) 2.33 x10^3/uL (1-3.4); LYMPHOCYTES % (AUTO) 11 % (22-44); MD SCAN; MONOCYTES # (AUTO) 2.39 x10^3/uL (0.2-0.8); MONOCYTES % (AUTO) 11 % (2-9); NEUTROPHILS # (AUTO) 16.22 x10^3/uL (1.8-6.8); NEUTROPHILS % (AUTO) 77 % (42-75)
[2019-08-08] MEDS: DOCUSATE 100 MG CAPSULE PO SCH ×2 (09:33→20:27)
[2019-08-08] MEDS: CLOPIDOGREL 75 MG TABLET PO SCH (09:33)
[2019-08-08] MEDS: AMLODIPINE 5 MG TABLET PO SCH (09:33)
[2019-08-08] MEDS: MULTIVITS,STRESS FORMULA 1 TABLET PO SCH (09:33)
[2019-08-08] MEDS: THIAMINE 200 MG in SODIUM CHLORIDE 0.9% 50 ML IV SCH (09:33)
[2019-08-08] MEDS: ZINC SULFATE 220 MG CAPSULE PO SCH (09:33)
[2019-08-08] MEDS: LISINOPRIL 10 MG TABLET PO SCH ×2 (09:33→20:27)
[2019-08-08] MEDS: CHOLECALCIFEROL 400 UNITS TABLET PO SCH (09:33)
[2019-08-08] MEDS: ENOXAPARIN 40 MG/0.4 ML SQ SCH (13:25)
[2019-08-08] MEDS: NICOTINE 14MG/24 HR PATCH.TD24 TD SCH (16:30)
[2019-08-08] MEDS: LORazepam 0.5MG TABLET PO PRN (20:27)
[2019-08-08] MEDS: ATORVASTATIN 80 MG TABLET PO SCH (20:27)
[2019-08-09] VITALS (10 sets, daily range): BP systolic 105–152; BP diastolic 40–71
[2019-08-09] MEDS: LORazepam 0.5MG TABLET PO PRN ×3 (00:29→21:52)
[2019-08-09] MEDS: OXYcodone IR 5MG TABLET PO PRN ×3 (00:30→21:53)
[2019-08-09] MEDS: AMPICILLIN/SULBACTAM 3,000 MG in SODIUM CHLORIDE 0.9% 100 ML IV SCH ×3 (00:30→17:48)
[2019-08-09] MEDS: ASCORBATE SODIUM 3,000 MG in SODIUM CHLORIDE 0.9% 250 ML IVPB SCH ×4 (04:46→23:12)
[2019-08-09 06:54] LABS: ALBUMIN 1.8 g/dL (3.4-5.0); ANION GAP 7 mmol/L (5-15); CALCIUM 7.7 mg/dL (8.5-10.1); CHLORIDE 111 mmol/L (98-107)
[2019-08-09 06:57] LABS: CREATININE 0.98 mg/dL (0.7-1.3)
[2019-08-09 07:47] LABS: MEAN CORPUSCULAR HEMOGLOBIN 28.4 pg (27.5-34.5); MEAN CORPUSCULAR HGB CONC 32.6 g/dL (33.2-36.2); MEAN CORPUSCULAR VOLUME 87.1 fL (81-97); MEAN PLATELET VOLUME 9.5 fL (7.4-10.4); PLATELET COUNT 292 x10^3/uL (130-400); RED BLOOD COUNT 2.22 x10^6/uL (4.38-5.82); RED CELL DISTRIBUTION WIDTH 18.3 % (9.4-14.8)
[2019-08-09 07:50] LABS: BASOPHILS # (AUTO) 0.03 x10^3/uL (0-0.1); BASOPHILS % (AUTO) 0 % (0-1); EOSINOPHILS # (AUTO) 0.87 x10^3/uL (0-0.4); EOSINOPHILS % (AUTO) 4 % (1-7); LYMPHOCYTES # (AUTO) 2.04 x10^3/uL (1-3.4); LYMPHOCYTES % (AUTO) 10 % (22-44); MD SCAN; MONOCYTES # (AUTO) 1.44 x10^3/uL (0.2-0.8); MONOCYTES % (AUTO) 7 % (2-9); NEUTROPHILS # (AUTO) 15.24 x10^3/uL (1.8-6.8); NEUTROPHILS % (AUTO) 78 % (42-75)
[2019-08-09] MEDS: POLYETHYLENE GLYCOL 17 GM PACKET PO PRN (08:39)
[2019-08-09] MEDS: CLOPIDOGREL 75 MG TABLET PO SCH (08:41)
[2019-08-09] MEDS: CHOLECALCIFEROL 400 UNITS TABLET PO SCH (08:41)
[2019-08-09] MEDS: MULTIVITS,STRESS FORMULA 1 TABLET PO SCH (08:42)
[2019-08-09] MEDS: LISINOPRIL 10 MG TABLET PO SCH ×2 (08:43→21:52)
[2019-08-09] MEDS: DOCUSATE 100 MG CAPSULE PO SCH ×2 (08:43→21:52)
[2019-08-09] MEDS: ZINC SULFATE 220 MG CAPSULE PO SCH (08:43)
[2019-08-09] MEDS: AMLODIPINE 5 MG TABLET PO SCH (08:43)
[2019-08-09] MEDS: THIAMINE 200 MG in SODIUM CHLORIDE 0.9% 50 ML IV SCH (10:28)
[2019-08-09] MEDS: ENOXAPARIN 40 MG/0.4 ML SQ SCH (13:02)
[2019-08-09] MEDS: NICOTINE 14MG/24 HR PATCH.TD24 TD SCH (13:03)
[2019-08-09] MEDS: BISACODYL 10 MG SUPP PR PRN (21:51)
[2019-08-09] MEDS: ATORVASTATIN 80 MG TABLET PO SCH (21:53)
[2019-08-10] VITALS (9 sets, daily range): BP systolic 123–146; BP diastolic 38–70
[2019-08-10] MEDS: AMPICILLIN/SULBACTAM 3,000 MG in SODIUM CHLORIDE 0.9% 100 ML IV SCH ×3 (01:39→17:30)
[2019-08-10] MEDS: ASCORBATE SODIUM 3,000 MG in SODIUM CHLORIDE 0.9% 250 ML IVPB SCH (04:38)
[2019-08-10] MEDS: OXYcodone IR 5MG TABLET PO PRN ×2 (04:38→20:40)
[2019-08-10] MEDS: LORazepam 0.5MG TABLET PO PRN (04:38)
[2019-08-10] MEDS: MULTIVITS,STRESS FORMULA 1 TABLET PO SCH (08:39)
[2019-08-10] MEDS: CLOPIDOGREL 75 MG TABLET PO SCH (08:39)
[2019-08-10] MEDS: DOCUSATE 100 MG CAPSULE PO SCH ×2 (08:39→20:43)
[2019-08-10] MEDS: AMLODIPINE 5 MG TABLET PO SCH (08:40)
[2019-08-10] MEDS: LISINOPRIL 10 MG TABLET PO SCH ×2 (08:40→20:42)
[2019-08-10] MEDS: ZINC SULFATE 220 MG CAPSULE PO SCH (08:40)
[2019-08-10] MEDS: CHOLECALCIFEROL 400 UNITS TABLET PO SCH (08:40)
[2019-08-10 09:21] LABS: MEAN CORPUSCULAR HEMOGLOBIN 29.2 pg (27.5-34.5); MEAN CORPUSCULAR HGB CONC 33.5 g/dL (33.2-36.2); MEAN CORPUSCULAR VOLUME 87.2 fL (81-97); MEAN PLATELET VOLUME 9.1 fL (7.4-10.4); PLATELET COUNT 316 x10^3/uL (130-400); RED CELL DISTRIBUTION WIDTH 16.9 % (9.4-14.8)
[2019-08-10 09:24] LABS: ALBUMIN 1.7 g/dL (3.4-5.0); CALCIUM 7.8 mg/dL (8.5-10.1); CREATININE 0.75 mg/dL (0.7-1.3)
[2019-08-10 09:32] LABS: BASOPHILS # (AUTO) 0.01 x10^3/uL (0-0.1); BASOPHILS % (AUTO) 0 % (0-1); EOSINOPHILS % (AUTO) 0 % (1-7); LYMPHOCYTES # (AUTO) 1.25 x10^3/uL (1-3.4); LYMPHOCYTES % (AUTO) 8 % (22-44); MD SCAN; MONOCYTES # (AUTO) 1.45 x10^3/uL (0.2-0.8); MONOCYTES % (AUTO) 9 % (2-9); NEUTROPHILS # (AUTO) 13.85 x10^3/uL (1.8-6.8); NEUTROPHILS % (AUTO) 84 % (42-75)
[2019-08-10 09:35] LABS: ANION GAP 9 mmol/L (5-15)
[2019-08-10 09:36] LABS: CHLORIDE 116 mmol/L (98-107)
[2019-08-10 09:38] LABS: OCCULT BLOOD NEGATIVE (NEGATIVE)
[2019-08-10] MEDS ORDERED: POTASSIUM CHLORIDE 20 MEQ in SODIUM CHLORIDE 0.9% 250 ML IV ONE (12:00)
[2019-08-10] MEDS: POTASSIUM CHLORIDE 10 MEQ in DEXTROSE 5% 1,000 ML IV SCH (12:58)
[2019-08-10] MEDS: NICOTINE 14MG/24 HR PATCH.TD24 TD SCH (15:46)
[2019-08-10] MEDS: ATORVASTATIN 80 MG TABLET PO SCH (20:42)
[2019-08-11] MEDS: AMPICILLIN/SULBACTAM 3,000 MG in SODIUM CHLORIDE 0.9% 100 ML IV SCH ×3 (01:04→17:07)
[2019-08-11 01:42] VITALS: BP 133/45
[2019-08-11] MEDS: POTASSIUM CHLORIDE 10 MEQ in DEXTROSE 5% 1,000 ML IV SCH (06:10)
[2019-08-11] MEDS: OXYcodone IR 5MG TABLET PO PRN ×3 (06:10→18:04)
[2019-08-11 07:49] LABS: MEAN CORPUSCULAR HGB CONC 33.1 g/dL (33.2-36.2); MEAN CORPUSCULAR VOLUME 87.4 fL (81-97); MEAN PLATELET VOLUME 9.1 fL (7.4-10.4); PLATELET COUNT 299 x10^3/uL (130-400); RED BLOOD COUNT 3.09 x10^6/uL (4.38-5.82); RED CELL DISTRIBUTION WIDTH 17.1 % (9.4-14.8)
[2019-08-11 08:00] LABS: ANION GAP 7 mmol/L (5-15); CALCIUM 7.9 mg/dL (8.5-10.1); CHLORIDE 112 mmol/L (98-107); CREATININE 0.57 mg/dL (0.7-1.3)
[2019-08-11 08:38] LABS: BASOPHILS # (AUTO) 0.02 x10^3/uL (0-0.1); BASOPHILS % (AUTO) 0 % (0-1); EOSINOPHILS # (AUTO) 0.89 x10^3/uL (0-0.4); EOSINOPHILS % (AUTO) 6 % (1-7); LYMPHOCYTES # (AUTO) 1.92 x10^3/uL (1-3.4); LYMPHOCYTES % (AUTO) 13 % (22-44); MD SCAN; MONOCYTES # (AUTO) 1.15 x10^3/uL (0.2-0.8); MONOCYTES % (AUTO) 8 % (2-9); NEUTROPHILS # (AUTO) 10.72 x10^3/uL (1.8-6.8); NEUTROPHILS % (AUTO) 73 % (42-75)
[2019-08-11 09:00] VITALS: BP 112/45
[2019-08-11] MEDS: ZINC SULFATE 220 MG CAPSULE PO SCH (09:26)
[2019-08-11] MEDS: LISINOPRIL 10 MG TABLET PO SCH ×2 (09:26→21:01)
[2019-08-11] MEDS: CHOLECALCIFEROL 400 UNITS TABLET PO SCH (09:26)
[2019-08-11] MEDS: AMLODIPINE 5 MG TABLET PO SCH (09:26)
[2019-08-11] MEDS: MULTIVITS,STRESS FORMULA 1 TABLET PO SCH (09:26)
[2019-08-11] MEDS: CLOPIDOGREL 75 MG TABLET PO SCH (09:26)
[2019-08-11] MEDS: DOCUSATE 100 MG CAPSULE PO SCH ×2 (09:26→21:01)
[2019-08-11] MEDS ORDERED: POTASSIUM CHLORIDE 20 MEQ TAB.ER.PRT PO ONE (10:00)
[2019-08-11 12:05] VITALS: BP 119/45
[2019-08-11] MEDS: NICOTINE 14MG/24 HR PATCH.TD24 TD SCH (14:10)
[2019-08-11] MEDS: ACETAMINOPHEN 325 MG TABLET PO PRN (18:04)
[2019-08-11 18:59] LABS: OCCULT BLOOD NEGATIVE (NEGATIVE)
[2019-08-11 19:52] VITALS: BP_SYST 117; BP_SYST 120; BP_DIAS 39; BP_DIAS 48
[2019-08-11 20:59] VITALS: BP 106/48
[2019-08-11] MEDS: ATORVASTATIN 80 MG TABLET PO SCH (21:01)
[2019-08-12 00:29] VITALS: BP 129/36
[2019-08-12] MEDS: AMPICILLIN/SULBACTAM 3,000 MG in SODIUM CHLORIDE 0.9% 100 ML IV SCH (01:09)
[2019-08-12] MEDS: ACETAMINOPHEN 325 MG TABLET PO PRN ×2 (04:45→21:01)
[2019-08-12] MEDS: OXYcodone IR 5MG TABLET PO PRN ×3 (04:45→22:11)
[2019-08-12 06:38] LABS: ANION GAP 5 mmol/L (5-15); CALCIUM 7.9 mg/dL (8.5-10.1); CHLORIDE 110 mmol/L (98-107)
[2019-08-12 06:39] LABS: CREATININE 0.65 mg/dL (0.7-1.3)
[2019-08-12 08:13] LABS: MEAN CORPUSCULAR HEMOGLOBIN 28.9 pg (27.5-34.5); MEAN CORPUSCULAR HGB CONC 32.9 g/dL (33.2-36.2); MEAN CORPUSCULAR VOLUME 87.6 fL (81-97); MEAN PLATELET VOLUME 9.1 fL (7.4-10.4); PLATELET COUNT 377 x10^3/uL (130-400); RED BLOOD COUNT 3.14 x10^6/uL (4.38-5.82); RED CELL DISTRIBUTION WIDTH 17.1 % (9.4-14.8)
[2019-08-12 08:21] VITALS: BP 106/65
[2019-08-12 08:37] LABS: BASOPHILS # (AUTO) 0.04 x10^3/uL (0-0.1); BASOPHILS % (AUTO) 0 % (0-1); EOSINOPHILS # (AUTO) 0.83 x10^3/uL (0-0.4); EOSINOPHILS % (AUTO) 6 % (1-7); LYMPHOCYTES # (AUTO) 1.62 x10^3/uL (1-3.4); LYMPHOCYTES % (AUTO) 12 % (22-44); MD SCAN; MONOCYTES # (AUTO) 1.25 x10^3/uL (0.2-0.8); MONOCYTES % (AUTO) 9 % (2-9); NEUTROPHILS # (AUTO) 9.93 x10^3/uL (1.8-6.8); NEUTROPHILS % (AUTO) 73 % (42-75)
[2019-08-12 09:05] VITALS: BP 113/39
[2019-08-12] MEDS: DOCUSATE 100 MG CAPSULE PO SCH ×2 (09:43→21:01)
[2019-08-12] MEDS: MULTIVITS,STRESS FORMULA 1 TABLET PO SCH (09:44)
[2019-08-12] MEDS: LISINOPRIL 10 MG TABLET PO SCH ×2 (09:44→21:01)
[2019-08-12] MEDS: CLOPIDOGREL 75 MG TABLET PO SCH (09:44)
[2019-08-12] MEDS: CHOLECALCIFEROL 400 UNITS TABLET PO SCH (09:44)
[2019-08-12] MEDS: DOXYCYCLINE 100MG TABLET PO SCH ×2 (09:44→21:01)
[2019-08-12] MEDS: AMLODIPINE 5 MG TABLET PO SCH (09:45)
[2019-08-12] MEDS: ZINC SULFATE 220 MG CAPSULE PO SCH (12:00)
[2019-08-12 13:13] VITALS: BP_SYST 123; BP_SYST 131; BP_DIAS 26; BP_DIAS 31
[2019-08-12 20:14] VITALS: BP 159/51
[2019-08-12] MEDS: ATORVASTATIN 80 MG TABLET PO SCH (21:01)
[2019-08-12 22:34] VITALS: BP 133/42
[2019-08-13 00:45] VITALS: BP 142/68
[2019-08-13 05:03] VITALS: BP 140/54
[2019-08-13] MEDS: OXYcodone IR 5MG TABLET PO PRN ×2 (07:10→17:39)
[2019-08-13 08:34] VITALS: BP 141/46
[2019-08-13] MEDS: DOCUSATE 100 MG CAPSULE PO SCH ×2 (08:50→21:01)
[2019-08-13] MEDS: DOXYCYCLINE 100MG TABLET PO SCH ×2 (08:58→21:13)
[2019-08-13] MEDS: CLOPIDOGREL 75 MG TABLET PO SCH (08:58)
[2019-08-13] MEDS: MULTIVITS,STRESS FORMULA 1 TABLET PO SCH (08:58)
[2019-08-13] MEDS: AMLODIPINE 5 MG TABLET PO SCH (08:58)
[2019-08-13] MEDS: CHOLECALCIFEROL 400 UNITS TABLET PO SCH (08:58)
[2019-08-13] MEDS: LISINOPRIL 10 MG TABLET PO SCH ×2 (08:58→21:12)
[2019-08-13] MEDS ORDERED: FUROSEMIDE 20 MG/2 ML IV ONE (09:00)
[2019-08-13] MEDS ORDERED: POTASSIUM CHLORIDE 20 MEQ TAB.ER.PRT PO ONE (09:00)
[2019-08-13] MEDS: ZINC SULFATE 220 MG CAPSULE PO SCH (12:16)
[2019-08-13 15:03] VITALS: BP 147/45
[2019-08-13 18:33] VITALS: BP 134/45
[2019-08-13] MEDS: ACETAMINOPHEN 325 MG TABLET PO PRN (21:11)
[2019-08-13] MEDS: ATORVASTATIN 80 MG TABLET PO SCH (21:12)
[2019-08-14 00:33] VITALS: BP 130/47
[2019-08-14] MEDS: OXYcodone IR 5MG TABLET PO PRN ×4 (05:06→18:32)
[2019-08-14 05:09] LABS: CHLORIDE 108 mmol/L (98-107)
[2019-08-14 05:10] LABS: ANION GAP 4 mmol/L (5-15); CALCIUM 8.4 mg/dL (8.5-10.1); CREATININE 0.54 mg/dL (0.7-1.3)
[2019-08-14 05:18] LABS: MEAN CORPUSCULAR HEMOGLOBIN 29.1 pg (27.5-34.5); MEAN CORPUSCULAR HGB CONC 33.1 g/dL (33.2-36.2); MEAN CORPUSCULAR VOLUME 87.8 fL (81-97); MEAN PLATELET VOLUME 8.5 fL (7.4-10.4); PLATELET COUNT 489 x10^3/uL (130-400); RED BLOOD COUNT 3.34 x10^6/uL (4.38-5.82)
[2019-08-14 05:58] LABS: MD YES
[2019-08-14 06:03] LABS: ANISOCYTOSIS 1+; BASOS#(MANUAL) 0.12 x10^3/uL (0-0.1); BASOS% (MANUAL) 1 % (0-1); ECHINOCYTES 1+; EOS#(MANUAL) 0.37 x10^3/uL (0.0-0.4); EOS% (MANUAL) 3 % (1-7); LYMPH#(MANUAL) 2.58 x10^3/uL (1-3.4); LYMPHS% (MANUAL) 21 % (22-44); MONOS#(MANUAL) 0.74 x10^3/uL (0.3-2.7); MONOS% (MANUAL) 6 % (2-9); OVALOCYTES 1+; POLYCHROMASIA 1+; SEG#(MANUAL) 8.49 x10^3/uL (1.8-6.8); SEGS% (MANUAL) 69 % (42-75)
[2019-08-14 06:04] LABS: <PLATELET ESTIMATE> INCREASED; <PLT MORPHOLOGY> NORMAL PLT MORPH
[2019-08-14 07:38] VITALS: BP 149/49
[2019-08-14] MEDS: DOCUSATE 100 MG CAPSULE PO SCH ×2 (08:55→21:07)
[2019-08-14] MEDS: AMLODIPINE 5 MG TABLET PO SCH (09:39)
[2019-08-14] MEDS: CLOPIDOGREL 75 MG TABLET PO SCH (09:39)
[2019-08-14] MEDS: CHOLECALCIFEROL 400 UNITS TABLET PO SCH (09:39)
[2019-08-14] MEDS: DOXYCYCLINE 100MG TABLET PO SCH ×2 (09:39→21:07)
[2019-08-14] MEDS: LISINOPRIL 10 MG TABLET PO SCH ×2 (09:40→21:07)
[2019-08-14] MEDS: MULTIVITS,STRESS FORMULA 1 TABLET PO SCH (09:40)
[2019-08-14] MEDS: ZINC SULFATE 220 MG CAPSULE PO SCH ×2 (11:05→12:26)
[2019-08-14 12:00] VITALS: BP_SYST 128; BP_SYST 129; BP_DIAS 39; BP_DIAS 82
[2019-08-14 21:05] VITALS: BP 128/49
[2019-08-14] MEDS: ATORVASTATIN 80 MG TABLET PO SCH (21:06)
[2019-08-14] MEDS: TRAZODONE 50MG TABLET PO PRN (21:06)
[2019-08-15 03:36] VITALS: BP 111/58
[2019-08-15] MEDS: OXYcodone IR 5MG TABLET PO PRN ×2 (05:20→20:59)
[2019-08-15 06:40] VITALS: BP 138/44
[2019-08-15] MEDS: CLOPIDOGREL 75 MG TABLET PO SCH (09:00)
[2019-08-15] MEDS ORDERED: AMLODIPINE 5 MG TABLET PO SCH (09:00)
[2019-08-15] MEDS: DOCUSATE 100 MG CAPSULE PO SCH ×2 (09:01→20:58)
[2019-08-15] MEDS: DOXYCYCLINE 100MG TABLET PO SCH ×2 (09:01→20:59)
[2019-08-15] MEDS: MULTIVITS,STRESS FORMULA 1 TABLET PO SCH (09:02)
[2019-08-15] MEDS: CHOLECALCIFEROL 400 UNITS TABLET PO SCH (09:02)
[2019-08-15] MEDS: LISINOPRIL 10 MG TABLET PO SCH ×2 (09:02→20:59)
[2019-08-15] MEDS: ZINC SULFATE 220 MG CAPSULE PO SCH (09:05)
[2019-08-15] MEDS: ENOXAPARIN 40 MG/0.4 ML SQ SCH (09:48)
[2019-08-15 13:19] VITALS: BP 108/42
[2019-08-15 19:09] VITALS: BP_SYST 103; BP_SYST 104; BP_DIAS 32; BP_DIAS 49
[2019-08-15 19:49] VITALS: BP 129/47
[2019-08-15] MEDS: ATORVASTATIN 80 MG TABLET PO SCH (20:59)
[2019-08-15] MEDS: TRAZODONE 50MG TABLET PO PRN (20:59)
[2019-08-16 00:35] VITALS: BP 120/42
[2019-08-16] MEDS: OXYcodone IR 5MG TABLET PO PRN ×3 (05:11→21:58)
[2019-08-16 06:14] LABS: BASOPHILS # (AUTO) 0.04 x10^3/uL (0-0.1); BASOPHILS % (AUTO) 0 % (0-1); EOSINOPHILS # (AUTO) 0.37 x10^3/uL (0-0.4); EOSINOPHILS % (AUTO) 4 % (1-7); LYMPHOCYTES # (AUTO) 1.81 x10^3/uL (1-3.4); LYMPHOCYTES % (AUTO) 17 % (22-44); MD NO; MEAN CORPUSCULAR HEMOGLOBIN 28.7 pg (27.5-34.5); MEAN CORPUSCULAR HGB CONC 33.1 g/dL (33.2-36.2); MEAN CORPUSCULAR VOLUME 86.8 fL (81-97); MEAN PLATELET VOLUME 8.9 fL (7.4-10.4); MONOCYTES # (AUTO) 1.22 x10^3/uL (0.2-0.8); MONOCYTES % (AUTO) 12 % (2-9); NEUTROPHILS # (AUTO) 6.97 x10^3/uL (1.8-6.8); NEUTROPHILS % (AUTO) 67 % (42-75); PLATELET COUNT 545 x10^3/uL (130-400); RED BLOOD COUNT 3.52 x10^6/uL (4.38-5.82); RED CELL DISTRIBUTION WIDTH 17.5 % (9.4-14.8)
[2019-08-16 07:44] VITALS: BP 123/76
[2019-08-16] MEDS ORDERED: AMLODIPINE 2.5 MG TABLET PO SCH (09:00)
[2019-08-16] MEDS: CHOLECALCIFEROL 400 UNITS TABLET PO SCH (09:39)
[2019-08-16] MEDS: MULTIVITS,STRESS FORMULA 1 TABLET PO SCH (09:39)
[2019-08-16] MEDS: CLOPIDOGREL 75 MG TABLET PO SCH (09:39)
[2019-08-16] MEDS: DOCUSATE 100 MG CAPSULE PO SCH ×2 (09:40→21:57)
[2019-08-16] MEDS: LISINOPRIL 10 MG TABLET PO SCH ×2 (09:40→21:58)
[2019-08-16] MEDS: ENOXAPARIN 40 MG/0.4 ML SQ SCH (09:40)
[2019-08-16] MEDS: DOXYCYCLINE 100MG TABLET PO SCH ×2 (09:40→21:57)
[2019-08-16] MEDS: ZINC SULFATE 220 MG CAPSULE PO SCH (12:21)
[2019-08-16 12:39] VITALS: BP 111/25
[2019-08-16 14:14] VITALS: BP 122/42
[2019-08-16 21:50] VITALS: BP 131/39
[2019-08-16] MEDS: ATORVASTATIN 80 MG TABLET PO SCH (21:57)
[2019-08-16] MEDS: TRAZODONE 50MG TABLET PO PRN (21:58)
[2019-08-17 02:58] VITALS: BP 134/41
[2019-08-17] MEDS: OXYcodone IR 5MG TABLET PO PRN ×4 (03:58→21:19)
[2019-08-17 08:00] VITALS: BP 137/36
[2019-08-17] MEDS: ENOXAPARIN 40 MG/0.4 ML SQ SCH (09:34)
[2019-08-17] MEDS: DOCUSATE 100 MG CAPSULE PO SCH ×2 (09:34→20:26)
[2019-08-17] MEDS: AMLODIPINE 2.5 MG TABLET PO SCH ×2 (09:34→20:26)
[2019-08-17] MEDS: DOXYCYCLINE 100MG TABLET PO SCH ×2 (09:34→20:26)
[2019-08-17] MEDS: MULTIVITS,STRESS FORMULA 1 TABLET PO SCH (09:34)
[2019-08-17] MEDS: CHOLECALCIFEROL 400 UNITS TABLET PO SCH (09:34)
[2019-08-17] MEDS: CLOPIDOGREL 75 MG TABLET PO SCH (09:34)
[2019-08-17] MEDS: LISINOPRIL 10 MG TABLET PO SCH ×2 (09:35→20:26)
[2019-08-17] MEDS: ZINC SULFATE 220 MG CAPSULE PO SCH (12:33)
[2019-08-17 14:00] VITALS: BP 122/29
[2019-08-17 20:26] VITALS: BP 114/19
[2019-08-17] MEDS: ATORVASTATIN 80 MG TABLET PO SCH (20:26)
[2019-08-18 01:06] VITALS: BP 121/31
[2019-08-18] MEDS: OXYcodone IR 5MG TABLET PO PRN ×3 (04:21→21:15)
[2019-08-18 07:52] VITALS: BP 148/120
[2019-08-18] MEDS: LISINOPRIL 10 MG TABLET PO SCH ×3 (07:54→21:15)
[2019-08-18] MEDS: AMLODIPINE 2.5 MG TABLET PO SCH ×3 (07:55→21:15)
[2019-08-18] MEDS: CLOPIDOGREL 75 MG TABLET PO SCH (08:54)
[2019-08-18] MEDS: DOXYCYCLINE 100MG TABLET PO SCH ×2 (08:54→21:15)
[2019-08-18] MEDS: CHOLECALCIFEROL 400 UNITS TABLET PO SCH (08:54)
[2019-08-18] MEDS: MULTIVITS,STRESS FORMULA 1 TABLET PO SCH (08:54)
[2019-08-18] MEDS: ENOXAPARIN 40 MG/0.4 ML SQ SCH (08:54)
[2019-08-18] MEDS: DOCUSATE 100 MG CAPSULE PO SCH ×2 (08:54→21:15)
[2019-08-18] MEDS ORDERED: GLYCERIN ADULT SUPP PR ONE (09:00)
[2019-08-18] MEDS: ZINC SULFATE 220 MG CAPSULE PO SCH (12:00)
[2019-08-18 13:00] VITALS: BP 110/71
[2019-08-18 20:00] VITALS: BP 110/91
[2019-08-18] MEDS: ATORVASTATIN 80 MG TABLET PO SCH (21:15)
[2019-08-19 00:49] VITALS: BP 113/28
[2019-08-19 06:10] LABS: BASOPHILS # (AUTO) 0.01 x10^3/uL (0-0.1); BASOPHILS % (AUTO) 0 % (0-1); EOSINOPHILS # (AUTO) 0.53 x10^3/uL (0-0.4); EOSINOPHILS % (AUTO) 5 % (1-7); LYMPHOCYTES # (AUTO) 2.35 x10^3/uL (1-3.4); LYMPHOCYTES % (AUTO) 23 % (22-44); MD NO; MEAN CORPUSCULAR HEMOGLOBIN 28.7 pg (27.5-34.5); MEAN CORPUSCULAR HGB CONC 32.5 g/dL (33.2-36.2); MEAN CORPUSCULAR VOLUME 88.3 fL (81-97); MEAN PLATELET VOLUME 8.7 fL (7.4-10.4); MONOCYTES # (AUTO) 0.44 x10^3/uL (0.2-0.8); MONOCYTES % (AUTO) 4 % (2-9); NEUTROPHILS # (AUTO) 6.99 x10^3/uL (1.8-6.8); NEUTROPHILS % (AUTO) 68 % (42-75); PLATELET COUNT 562 x10^3/uL (130-400); RED CELL DISTRIBUTION WIDTH 17.5 % (9.4-14.8)
[2019-08-19 06:20] LABS: ANION GAP 7 mmol/L (5-15); CALCIUM 9.2 mg/dL (8.5-10.1); CHLORIDE 112 mmol/L (98-107)
[2019-08-19] MEDS: DOCUSATE 100 MG CAPSULE PO SCH ×2 (09:00→21:00)
[2019-08-19] MEDS: MULTIVITS,STRESS FORMULA 1 TABLET PO SCH (09:00)
[2019-08-19] MEDS: LISINOPRIL 10 MG TABLET PO SCH ×2 (09:00→21:06)
[2019-08-19] MEDS: POLYETHYLENE GLYCOL 17 GM PACKET PO SCH (09:00)
[2019-08-19] MEDS: AMLODIPINE 2.5 MG TABLET PO SCH ×2 (09:00→21:06)
[2019-08-19] MEDS: CLOPIDOGREL 75 MG TABLET PO SCH (09:00)
[2019-08-19] MEDS: DOXYCYCLINE 100MG TABLET PO SCH ×2 (09:00→21:06)
[2019-08-19] MEDS: CHOLECALCIFEROL 400 UNITS TABLET PO SCH (09:00)
[2019-08-19] MEDS: ENOXAPARIN 40 MG/0.4 ML SQ SCH (09:23)
[2019-08-19 09:24] VITALS: BP 104/33
[2019-08-19] MEDS: OXYcodone IR 5MG TABLET PO PRN ×3 (09:24→18:14)
[2019-08-19] MEDS: CARBAMIDE PEROXIDE EAR DROPS 6.5%, 15ML EACH EAR SCH (10:00)
[2019-08-19] MEDS: ZINC SULFATE 220 MG CAPSULE PO SCH (12:00)
[2019-08-19 14:16] VITALS: BP 98/41
[2019-08-19 16:18] VITALS: BP 118/52
[2019-08-19 19:13] VITALS: BP 124/64
[2019-08-19] MEDS: ATORVASTATIN 80 MG TABLET PO SCH (21:05)
[2019-08-20 01:21] VITALS: BP 125/53
[2019-08-20] MEDS: OXYcodone IR 5MG TABLET PO PRN (05:29)
[2019-08-20 07:00] VITALS: BP 152/56
[2019-08-20] MEDS: LISINOPRIL 10 MG TABLET PO SCH ×2 (08:43→20:13)
[2019-08-20] MEDS: DOXYCYCLINE 100MG TABLET PO SCH ×2 (08:43→20:12)
[2019-08-20] MEDS: AMLODIPINE 2.5 MG TABLET PO SCH ×2 (08:43→20:13)
[2019-08-20] MEDS: DOCUSATE 100 MG CAPSULE PO SCH ×2 (08:43→20:13)
[2019-08-20] MEDS: CARBAMIDE PEROXIDE EAR DROPS 6.5%, 15ML EACH EAR SCH (08:44)
[2019-08-20] MEDS: POLYETHYLENE GLYCOL 17 GM PACKET PO SCH (08:44)
[2019-08-20] MEDS ORDERED: SODIUM CHLORIDE 0.9% 1,000 ML IV SCH (09:35)
[2019-08-20] MEDS ORDERED: VANCOMYCIN PMX 1GM/200ML 200 ML IVPB SCH (10:00)
[2019-08-20] MEDS ORDERED: CEFAZOLIN 1,000 MG ONE (10:19)
[2019-08-20] MEDS ORDERED: CEFAZOLIN PMX 1GM/50ML 50 ML ONE (10:19)
[2019-08-20] MEDS ORDERED: MIDAZOLAM 1 MG/ML, 5ML ONE (10:19)
[2019-08-20] MEDS ORDERED: LIDOCAINE 2%, 20ML ONE (10:19)
[2019-08-20] MEDS ORDERED: FENTANYL PF 100 MCG/2ML ONE (10:19)
[2019-08-20] MEDS ORDERED: VANCOMYCIN 1,400 MG in SODIUM CHLORIDE 0.9% 250 ML IV ONE (10:30)
[2019-08-20] MEDS ORDERED: VANCOMYCIN 500 MG ONE (10:43)
[2019-08-20] MEDS: ZINC SULFATE 220 MG CAPSULE PO SCH (12:00)
[2019-08-20] MEDS ORDERED: HOLD MEDICATION MC PRN (12:00)
[2019-08-20] MEDS ORDERED: HYDROcodone/APAP 5/325 TABLET PO PRN (12:00)
[2019-08-20] MEDS: CHOLECALCIFEROL 400 UNITS TABLET PO SCH (12:41)
[2019-08-20] MEDS: MULTIVITS,STRESS FORMULA 1 TABLET PO SCH (12:42)
[2019-08-20] MEDS: CLOPIDOGREL 75 MG TABLET PO SCH (12:53)
[2019-08-20 13:49] VITALS: BP 121/51
[2019-08-20 15:15] VITALS: BP 114/53
[2019-08-20 20:02] VITALS: BP 100/49
[2019-08-20] MEDS: TRAZODONE 50MG TABLET PO PRN (20:12)
[2019-08-20] MEDS: ATORVASTATIN 80 MG TABLET PO SCH (20:13)
[2019-08-20] MEDS: SODIUM CHLORIDE FLUSH 10ML SYR IVF SCH (20:14)
[2019-08-20] MEDS ORDERED: DIPHENHYDRAMINE 50 MG CAPSULE PO PRN (21:00)
[2019-08-20 23:52] VITALS: BP 110/48
[2019-08-21] MEDS: OXYcodone IR 5MG TABLET PO PRN ×2 (03:05→10:21)
[2019-08-21 05:59] LABS: BASOPHILS # (AUTO) 0.03 x10^3/uL (0-0.1); BASOPHILS % (AUTO) 0 % (0-1); EOSINOPHILS # (AUTO) 0.41 x10^3/uL (0-0.4); EOSINOPHILS % (AUTO) 4 % (1-7); LYMPHOCYTES # (AUTO) 2.03 x10^3/uL (1-3.4); LYMPHOCYTES % (AUTO) 20 % (22-44); MD NO; MEAN CORPUSCULAR HEMOGLOBIN 28.5 pg (27.5-34.5); MEAN CORPUSCULAR HGB CONC 32.5 g/dL (33.2-36.2); MEAN CORPUSCULAR VOLUME 87.8 fL (81-97); MEAN PLATELET VOLUME 9.3 fL (7.4-10.4); MONOCYTES # (AUTO) 0.99 x10^3/uL (0.2-0.8); MONOCYTES % (AUTO) 10 % (2-9); NEUTROPHILS # (AUTO) 6.67 x10^3/uL (1.8-6.8); NEUTROPHILS % (AUTO) 66 % (42-75); PLATELET COUNT 466 x10^3/uL (130-400); RED BLOOD COUNT 3.86 x10^6/uL (4.38-5.82); RED CELL DISTRIBUTION WIDTH 17.7 % (9.4-14.8)
[2019-08-21 06:08] LABS: ANION GAP 5 mmol/L (5-15); CALCIUM 9.1 mg/dL (8.5-10.1); CHLORIDE 111 mmol/L (98-107); CREATININE 0.59 mg/dL (0.7-1.3)
[2019-08-21] MEDS: POLYETHYLENE GLYCOL 17 GM PACKET PO SCH (09:00)
[2019-08-21] MEDS: SODIUM CHLORIDE FLUSH 10ML SYR IVF SCH (09:00)
[2019-08-21] MEDS: DOCUSATE 100 MG CAPSULE PO SCH (09:00)
[2019-08-21 10:14] VITALS: BP 137/61
[2019-08-21] MEDS: CLOPIDOGREL 75 MG TABLET PO SCH (10:20)
[2019-08-21] MEDS: MULTIVITS,STRESS FORMULA 1 TABLET PO SCH (10:20)
[2019-08-21] MEDS: AMLODIPINE 2.5 MG TABLET PO SCH (10:20)
[2019-08-21] MEDS: CHOLECALCIFEROL 400 UNITS TABLET PO SCH (10:21)
[2019-08-21] MEDS: LISINOPRIL 10 MG TABLET PO SCH (10:21)
[2019-08-21] MEDS: DOXYCYCLINE 100MG TABLET PO SCH (10:21)
[2019-08-21] MEDS: CARBAMIDE PEROXIDE EAR DROPS 6.5%, 15ML EACH EAR SCH (10:27)
[2019-08-21] MEDS ORDERED: ATOR-2 PO (11:47)
[2019-08-21] MEDS ORDERED: OXYC5TAB3 PO (11:47)
[2019-08-21] MEDS ORDERED: AMLO5TAB4 PO (11:47)
[2019-08-21] MEDS ORDERED: DOXY100T PO (11:47)
[2019-08-21] MEDS: ZINC SULFATE 220 MG CAPSULE PO SCH (13:07)
== END 2019-08-21 14:14 | DRG 270 ==
LOC: ED 11:23 → EDIP 13:09 → ICU 15:37 → 4NW 08-02 17:28 → 4NE 08-11 11:44 → 5SO 08-19 16:10
PROVIDERS: ADMIT Hospitalist; ATTEND Family Medicine
PROC: 5A1223Z Performance of Cardiac Pacing, Continuous (ICD-10-PCS; principal; 2019-07-28)
PROC: 04CL3ZZ Extirpation of Matter from Left Femoral Artery, Percutaneous Approach (ICD-10-PCS; 2019-08-06)
PROC: 047L34Z Dilation of Left Femoral Artery with Drug-eluting Intraluminal Device, Percutaneous Approach (ICD-10-PCS; 2019-08-06)
PROC: 047N34Z Dilation of Left Popliteal Artery with Drug-eluting Intraluminal Device, Percutaneous Approach (ICD-10-PCS; 2019-08-06)
PROC: B41D1ZZ Fluoroscopy of Aorta and Bilateral Lower Extremity Arteries using Low Osmolar Contrast (ICD-10-PCS; 2019-08-06)
PROC: 30233N1 Transfusion of Nonautologous Red Blood Cells into Peripheral Vein, Percutaneous Approach (ICD-10-PCS; 2019-08-08)
PROC: 0JH606Z Insertion of Pacemaker, Dual Chamber into Chest Subcutaneous Tissue and Fascia, Open Approach (ICD-10-PCS; 2019-08-20)
PROC: 02H63JZ Insertion of Pacemaker Lead into Right Atrium, Percutaneous Approach (ICD-10-PCS; 2019-08-20)
PROC: 02HK3JZ Insertion of Pacemaker Lead into Right Ventricle, Percutaneous Approach (ICD-10-PCS; 2019-08-20)
DX: I44.2 Atrioventricular block, complete (principal); G92 Toxic encephalopathy; N17.0 Acute kidney failure with tubular necrosis; I50.30 Unspecified diastolic (congestive) heart failure; F10.239 Alcohol dependence with withdrawal, unspecified; D62 Acute posthemorrhagic anemia; E87.0 Hyperosmolality and hypernatremia; L03.116 Cellulitis of left lower limb; I70.209 Unspecified atherosclerosis of native arteries of extremities, unspecified extremity; E11.51 Type 2 diabetes mellitus with diabetic peripheral angiopathy without gangrene; I05.0 Rheumatic mitral stenosis; Z66 Do not resuscitate; I95.9 Hypotension, unspecified; E78.00 Pure hypercholesterolemia, unspecified; E78.5 Hyperlipidemia, unspecified; E87.6 Hypokalemia; I11.0 Hypertensive heart disease with heart failure; I99.8 Other disorder of circulatory system; L97.509 Non-pressure chronic ulcer of other part of unspecified foot with unspecified severity; N40.0 Benign prostatic hyperplasia without lower urinary tract symptoms; Z51.5 Encounter for palliative care; M79.81 Nontraumatic hematoma of soft tissue; Z20.828 Contact with and (suspected) exposure to other viral communicable diseases; Z59.0 Homelessness; Z79.02 Long term (current) use of antithrombotics/antiplatelets; Z78.1 Physical restraint status; Z79.82 Long term (current) use of aspirin; Z80.1 Family history of malignant neoplasm of trachea, bronchus and lung; Z91.14 Patient's other noncompliance with medication regimen; Z63.8 Other specified problems related to primary support group; Z87.891 Personal history of nicotine dependence; Z91.19 Patient's noncompliance with other medical treatment and regimen
CPT/HCPCS: 33208; 33210; 36415; 37227; 70450; 71045; 74176; 75710; 80048; 80053; 80061; 80069; 81003; 82272; 82436; 82570; 83036; 83615; 83735; 83880; 84100; 84133; 84300; 84439; 84443; 84484; 85025; 85379; 85520; 85610; 86140; 86850; 86900; 86923; 87081; 93005; 93308; 93321; 93325; 93922; 93925; 93975; 96374; 96375; 99156; 99157; C1725; C1779; C1785; C1892; C1894; G0378; J0690; J1265; J1644; J1650; J2250; J2405; J2720; J3010; J3370; J3411; J3480; J3486; J7070; C1751; C1760; C1769; C1884; J0295; J0360; J1200; J1940; J2060; J2270; J2310; J7030; J7050; J7120; P9016; U0001-CS

== ENCOUNTER 2019-09-01 16:59 | Emergency (ER) | payer MEDICARE, MEDICAID ==
[~2019-09-01] VITALS: Ht 162.6 cm; Wt 70.1 kg
[~2019-09-01 16:59] MED LIST changes: +AMLO5TAB4 PO; +AMOX1TAB64 PO; +ATOR-2 PO; +DOXY100T PO; +HYDR-3240 PO; +OXYC5TAB3 PO
[2019-09-01 17:59] LABS: BASOPHILS # (AUTO) 0.06 x10^3/uL (0-0.1); BASOPHILS % (AUTO) 1 % (0-1); EOSINOPHILS # (AUTO) 0.64 x10^3/uL (0-0.4); EOSINOPHILS % (AUTO) 7 % (1-7); LYMPHOCYTES # (AUTO) 2.09 x10^3/uL (1-3.4); LYMPHOCYTES % (AUTO) 24 % (22-44); MD NO; MEAN CORPUSCULAR HEMOGLOBIN 28.7 pg (27.5-34.5); MEAN CORPUSCULAR HGB CONC 32.6 g/dL (33.2-36.2); MEAN PLATELET VOLUME 8.9 fL (7.4-10.4); MONOCYTES # (AUTO) 0.85 x10^3/uL (0.2-0.8); MONOCYTES % (AUTO) 10 % (2-9); NEUTROPHILS # (AUTO) 5.07 x10^3/uL (1.8-6.8); NEUTROPHILS % (AUTO) 58 % (42-75); PLATELET COUNT 290 x10^3/uL (130-400); RED BLOOD COUNT 4.18 x10^6/uL (4.38-5.82); RED CELL DISTRIBUTION WIDTH 17.3 % (9.4-14.8)
[2019-09-01] MEDS ORDERED: METHYLNALTREXONE 12 MG/0.6 ML SYR SQ ONE ×2 (18:00→18:02)
--- NOTE | 2019-09-01 18:08 | NUR ---
TASK RN: PT MEDICATED PER EMAR FOR PAIN/CONSTIPATION. FAMILY MEMBER AT BEDSIDE.
[2019-09-01 18:09] LABS: ALANINE AMINOTRANSFERASE 25 U/L (12-78); ALBUMIN 3.1 g/dL (3.4-5.0); ANION GAP 8 mmol/L (5-15); CALCIUM 9.4 mg/dL (8.5-10.1); CHLORIDE 112 mmol/L (98-107); CREATININE 0.85 mg/dL (0.7-1.3)
[2019-09-01 18:12] LABS: ALKALINE PHOSPHATASE 82 U/L (45-117); BILIRUBIN,TOTAL 0.6 mg/dL (0.2-1.0); TOTAL PROTEIN 7.5 g/dL (6.4-8.2)
--- NOTE | 2019-09-01 19:10 | NUR ---
ATTEMPTED [facility] ENEMA. PT UNABLE TO TOLERATE HOLDING IN LIQUID VERY WELL. MINIMAL LIQUID OUTPUT NOTED. DISCUSSED WITH FLAQUITA NEAL AND ANA GAGE. FLAQUITA NEAL WILL ATTEMPT DIGITAL DISIMPACTION.
[2019-09-01] MEDS ORDERED: PINK LADY ENEMA 490 ML BOTTLE PR ONE (20:00)
--- NOTE | 2019-09-01 20:01 | NUR ---
PT HAD LARGE SUCCESSFUL ON COMMODE AFTER DIGITAL DISIMPACTION BY PA. PT REPORTS PRESSURE IN ABDOMEN HAS RESOLVED. PT ASSISTED BACK TO COMMODE.
[2019-09-01 20:16] VITALS: BP 131/51
== END 2019-09-01 20:18 | disposition home or self-care (01) ==
LOC: ED 20:16
DX: K59.00 Constipation, unspecified (principal); R10.84 Generalized abdominal pain; I10 Essential (primary) hypertension
CPT/HCPCS: 36415; 74021; 80053; 85025; 96372; 99284

== ENCOUNTER 2019-09-06 13:17 | Outpatient (CLI) | payer MEDICARE, MEDICAID | END 2019-09-06 23:59 | disposition home or self-care (01) | LOC: WOUND 13:17 | PROVIDERS: ATTEND Internal Medicine | DX: E11.622 Type 2 diabetes mellitus with other skin ulcer (principal); I70.242 Atherosclerosis of native arteries of left leg with ulceration of calf; L97.222 Non-pressure chronic ulcer of left calf with fat layer exposed; E11.621 Type 2 diabetes mellitus with foot ulcer; I70.245 Atherosclerosis of native arteries of left leg with ulceration of other part of foot; L97.521 Non-pressure chronic ulcer of other part of left foot limited to breakdown of skin; I70.244 Atherosclerosis of native arteries of left leg with ulceration of heel and midfoot; L97.421 Non-pressure chronic ulcer of left heel and midfoot limited to breakdown of skin; L89.629 Pressure ulcer of left heel, unspecified stage; L89.899 Pressure ulcer of other site, unspecified stage; E11.51 Type 2 diabetes mellitus with diabetic peripheral angiopathy without gangrene; F10.239 Alcohol dependence with withdrawal, unspecified; E78.5 Hyperlipidemia, unspecified; I11.0 Hypertensive heart disease with heart failure; I50.30 Unspecified diastolic (congestive) heart failure; E78.00 Pure hypercholesterolemia, unspecified; Z87.891 Personal history of nicotine dependence; Z95.0 Presence of cardiac pacemaker; Z79.02 Long term (current) use of antithrombotics/antiplatelets; Z79.82 Long term (current) use of aspirin; Z79.84 Long term (current) use of oral hypoglycemic drugs | CPT/HCPCS: G0463 ==

== ENCOUNTER → 2019-09-15 | Outpatient (CLI) | payer MEDICARE, MEDICAID | END | disposition home or self-care (01) | LOC: WOUND 13:35 | PROVIDERS: ATTEND Internal Medicine | DX: E11.622 Type 2 diabetes mellitus with other skin ulcer (principal); I70.242 Atherosclerosis of native arteries of left leg with ulceration of calf; L97.222 Non-pressure chronic ulcer of left calf with fat layer exposed; E11.621 Type 2 diabetes mellitus with foot ulcer; I70.245 Atherosclerosis of native arteries of left leg with ulceration of other part of foot; L97.521 Non-pressure chronic ulcer of other part of left foot limited to breakdown of skin; I70.244 Atherosclerosis of native arteries of left leg with ulceration of heel and midfoot; L97.421 Non-pressure chronic ulcer of left heel and midfoot limited to breakdown of skin; L89.629 Pressure ulcer of left heel, unspecified stage; L89.899 Pressure ulcer of other site, unspecified stage; E11.51 Type 2 diabetes mellitus with diabetic peripheral angiopathy without gangrene; F10.239 Alcohol dependence with withdrawal, unspecified; E78.5 Hyperlipidemia, unspecified; I11.0 Hypertensive heart disease with heart failure; I50.30 Unspecified diastolic (congestive) heart failure; E78.00 Pure hypercholesterolemia, unspecified; Z87.891 Personal history of nicotine dependence; Z95.0 Presence of cardiac pacemaker; Z79.02 Long term (current) use of antithrombotics/antiplatelets; Z79.82 Long term (current) use of aspirin; Z79.84 Long term (current) use of oral hypoglycemic drugs | CPT/HCPCS: 97597 ==

== ENCOUNTER → 2019-09-29 | Outpatient (CLI) | payer MEDICARE, MEDICAID | END | disposition home or self-care (01) | LOC: WOUND 13:06 | PROVIDERS: ATTEND Internal Medicine | DX: E11.622 Type 2 diabetes mellitus with other skin ulcer (principal); I70.242 Atherosclerosis of native arteries of left leg with ulceration of calf; L97.222 Non-pressure chronic ulcer of left calf with fat layer exposed; E11.621 Type 2 diabetes mellitus with foot ulcer; I70.245 Atherosclerosis of native arteries of left leg with ulceration of other part of foot; L97.521 Non-pressure chronic ulcer of other part of left foot limited to breakdown of skin; I70.244 Atherosclerosis of native arteries of left leg with ulceration of heel and midfoot; L97.421 Non-pressure chronic ulcer of left heel and midfoot limited to breakdown of skin; L89.629 Pressure ulcer of left heel, unspecified stage; L89.899 Pressure ulcer of other site, unspecified stage; E11.51 Type 2 diabetes mellitus with diabetic peripheral angiopathy without gangrene; F10.239 Alcohol dependence with withdrawal, unspecified; E78.5 Hyperlipidemia, unspecified; I11.0 Hypertensive heart disease with heart failure; I50.30 Unspecified diastolic (congestive) heart failure; E78.00 Pure hypercholesterolemia, unspecified; Z87.891 Personal history of nicotine dependence; Z95.0 Presence of cardiac pacemaker; Z79.02 Long term (current) use of antithrombotics/antiplatelets; Z79.82 Long term (current) use of aspirin; Z79.84 Long term (current) use of oral hypoglycemic drugs | CPT/HCPCS: 97597 ==

== ENCOUNTER → 2020-01-31 | Outpatient (CLI) | payer MEDICARE, MEDICAID ==
[~2020-01-31] MED LIST changes: +AMLO-211 PO; -AMLO10TA8 PO
== END | disposition home or self-care (01) ==
LOC: CFH 14:19
PROVIDERS: ATTEND Pain Medicine Pain Medicine
DX: M47.26 Other spondylosis with radiculopathy, lumbar region (principal); M48.061 Spinal stenosis, lumbar region without neurogenic claudication
CPT/HCPCS: 72131

== ENCOUNTER 2020-10-13 12:47 | Outpatient (CLI) | payer MEDICARE, MEDICAID ==
[~2020-10-13 12:47] MED LIST changes: -ASPI-515 PO; -ASPI-515 PO/NG; +ASPI-963 PO; +ASPI-963 PO/NG; -CYCL-259 PO; +CYCL10TA2 PO; +HYDR-2214 PO; -HYDR-3240 PO; -OXYC5TAB3 PO; +OXYC5TAB98 PO
== END 2020-10-13 23:59 | disposition home or self-care (01) ==
LOC: WOUND 12:47
PROVIDERS: ATTEND Internal Medicine
DX: I87.303 Chronic venous hypertension (idiopathic) without complications of bilateral lower extremity (principal); E11.40 Type 2 diabetes mellitus with diabetic neuropathy, unspecified; E11.51 Type 2 diabetes mellitus with diabetic peripheral angiopathy without gangrene; N40.0 Benign prostatic hyperplasia without lower urinary tract symptoms; F41.9 Anxiety disorder, unspecified; E78.5 Hyperlipidemia, unspecified; Z95.0 Presence of cardiac pacemaker; Z87.891 Personal history of nicotine dependence
CPT/HCPCS: G0463